=== PATIENT | female | born 1990 | race Caucasian/White ===

== ENCOUNTER 2020-09-25 13:05 | Outpatient (REF) | payer OTHER, SELFPAY | END 2020-09-25 13:06 | disposition home or self-care (01) | LOC: HO.LAB 13:05 | PROVIDERS: Visit Provider Internal Medicine | DX: Z20.822 Contact with and (suspected) exposure to COVID-19 (principal) | CPT/HCPCS: 36415; C9803; U0003; U0005 ==

== ENCOUNTER 2021-03-31 08:11 | Outpatient (REF) | payer OTHER, SELFPAY | END 2021-03-31 08:12 | disposition home or self-care (01) | LOC: HO.HMGCLDS 08:11 | PROVIDERS: PCP Internal Medicine; Visit Provider Internal Medicine | DX: Z20.822 Contact with and (suspected) exposure to COVID-19 (principal) | CPT/HCPCS: C9803; U0003; U0005 ==

== ENCOUNTER 2021-12-29 00:07 | Emergency (ER) | payer OTHER, SELFPAY ==
--- NOTE | ~2021-12-29 | XR_ITS ---
EXAMINATION: XR HAND, RIGHT CLINICAL INFORMATION: Trauma. COMPARISON: None TECHNIQUE: PA, lateral, and oblique views of the right hand. FINDINGS: Images are obtained with a marker position towards the second distal phalanx. No fractures, malalignment, dystrophic calcifications, embedded radiopaque foreign bodies or soft tissue emphysematous changes are noted. Normal bone mineralization is identified. XR/XR hand RT 2V IMPRESSION: Normal radiographs of the right hand.
[2021-12-29 00:20] VITALS: BP 118/64; PULSE 82; RESP 18; TEMP 36.4; O2SAT 98; BMI 30.7
[2021-12-29 02:00] VITALS: BP 94/56; PULSE 72; RESP 16; TEMP 36.7; O2SAT 99
[2021-12-29 04:00] VITALS: BP 118/68; PULSE 76; RESP 16; TEMP 36.7; O2SAT 99
[2021-12-29] MEDS: Acetaminophen 325 MG TABLET 650 MG PO (04:15)
--- NOTE | 2021-12-29 06:41 | ED.EXTPRO ---
HPI - Extremity Problem General Chief complaint: Extremity Problem Stated complaint: punctured R pointer finger with hook, tingling arm Time Seen by Provider: 12/29/21 06:41 Source: patient Mode of arrival: ambulatory Limitations: no limitations History of Present Illness Complaint: other (puncture wound index finger right hand) Onset (ago): day(s) (last night) Pain Consistency: constant Location: right and other (index finger with her new crotchet needle) Quality: aching Radiation: proximal Relieving factors: nothing Exacerbating factors: palpation Associated symptoms: denies other symptoms Context: other (crotchet needle) Related Data Previous Rx's Medication Instructions Recorded nebulizers #1 ea 09/25/20 albuterol sulfate 2.5 mg (3 mL) inhalation QID PRN 10/01/20 shortness of breath or wheezing #180 mL cephalexin 500 mg capsule 500 mg PO TID 5 days #15 caps 12/29/21 Allergies Allergy/AdvReac Type Severity Reaction Status Date / Time morphine [MORPHINE] Allergy Severe SOB/TREMORS, Unverified 03/26/20 17:18 shortness of breath, shortness of breath levetiracetam [Keppra] Allergy Unknown Verified 11/21/19 00:00 Review of Systems Review of Systems: Constitutional : No Fever, No Chills, Cardiovascular : No Chest Pain, No SOB Respiratory : No Dyspnea Gastrointestinal : No abdominal pain Musculoskeletal : No Joint Swelling Skin : No rash, positive skin puncture Neuro : No Weakness, No Numbness PMFSH Past Medical History Attestation statement: The following information was validated with the patient. Medical History Chiari I malformation HSV-2 infection Surgical History History of section History of hernia repair Social History Social History (Updated 12/29/21 @ 07:22 by Odessa Peterson DO) Patient Tobacco Use Status: Never used Tobacco Advance Directives: No Physical Exam Vital Signs: Vital Signs: Last Vital Signs Temp 98.0 F 12/29/21 04:00 Pulse 76 12/29/21 04:00 Resp 16 12/29/21 04:00 BP 118/68 12/29/21 04:00 Pulse Ox 99 12/29/21 04:00 O2 Del Method 12/29/21 04:00 BMI result Body Mass Index 30.7 Appearance: Alert. Oriented X3. No acute distress. Eyes: Pupils equal, round and reactive to light. ENT: Pharynx normal. Neck: Normal inspection. Neck supple. CVS: Pulses normal. Respiratory: No respiratory distress. Abdomen: Soft and nontender. Skin: Skin warm and dry. Normal skin color. Extremities: No lower extremity edema. R index finger puncture wound very punctate on pad closed not bleeding some whitish discoloration to the nail but no hematoma seen SILT throughout, BCR in digit, full ROM and strength in flexion/extension Neuro: Oriented X 3. No motor deficit. No sensory deficit. MDM - Extremity (Nontraumatic) MDM Narrative Medical decision making narrative: 31 yo female with puncture wound to R index finger (L hand dom) SILT intact, xray negative, full ROM, will update tetanus and start on 5 days cephalexin given puncture wound in nailbed - stable for DC patient is NV intact and has full ROM of finger Discharge Plan Discharge Clinical Impression: Puncture wound Patient Disposition: Home, Self-Care Instructions: Puncture Wound (ED), Bone Bruise (ED) Additional Instructions: return to ED for any worsening symptoms or concerns FINDINGS: Images are obtained with a marker position towards the second distal phalanx. No fractures, malalignment, dystrophic calcifications, embedded radiopaque foreign bodies or soft tissue emphysematous changes are noted. Normal bone mineralization is identified.? XR/XR hand RT 2V IMPRESSION: Normal radiographs of the right hand. Prescriptions: New cephalexin 500 mg capsule 500 mg PO TID 5 Days Qty: 15 0RF No Action (DME) nebulizers Misc See Rx Instructions .ROUTE .MEDSUPPLY Qty: 1 0RF Rx Instructions: As directed updraft treatment Q 4-6 hours p.r.n. albuterol sulfate 2.5 mg /3 mL (0.083 %) solution for nebulization 2.5 mg inhalation QID PRN (Reason: shortness of breath or wheezing) Qty: 180 0RF Interventions: ED Discharge Assessment Last Done: 12/29/21 07:13 Discharge Date/Time: 12/29/21 07:13
[2021-12-29] MEDS: cephALEXin 500 MG CAPSULE PO (07:00)
[2021-12-29] MEDS: Diphth,Pertus(ACell),Tet Adult 0.5 ML SYRINGE IM (07:00)
== END 2021-12-29 07:13 | disposition home or self-care (01) ==
PROVIDERS: Emergency Provider Emergency Medicine; PCP Internal Medicine
DX: S61.230A Puncture wound without foreign body of right index finger without damage to nail, initial encounter (principal); W26.9XXA Contact with unspecified sharp object(s), initial encounter; Y93.9 Activity, unspecified; Y92.9 Unspecified place or not applicable; Y99.9 Unspecified external cause status; Z79.899 Other long term (current) drug therapy
CPT/HCPCS: 73120; 90471; 90715; 99284

== ENCOUNTER → 2022-05-09 13:15 | Outpatient (BNVA) | payer OTHER, SELFPAY | PROVIDERS: PCP Internal Medicine; Visit Provider Surgery | DX: K64.8 Other hemorrhoids (principal); Z80.3 Family history of malignant neoplasm of breast | CPT/HCPCS: 46600; 99202 ==

== ENCOUNTER → 2022-05-11 12:51 | Outpatient (BNVA) | payer OTHER, SELFPAY | PROVIDERS: PCP Internal Medicine; Visit Provider Surgery | DX: Z31.438 Encounter for other genetic testing of female for procreative management (principal) | CPT/HCPCS: 99211 ==

== ENCOUNTER → 2022-06-23 13:22 | Outpatient (BNVA) | payer OTHER, SELFPAY | PROVIDERS: PCP Internal Medicine; Visit Provider Surgery | DX: Z71.2 Person consulting for explanation of examination or test findings (principal); Z80.3 Family history of malignant neoplasm of breast | CPT/HCPCS: 99212 ==

== ENCOUNTER 2024-12-13 08:18 | Outpatient (REF) | payer OTHER, SELFPAY ==
--- NOTE | ~2024-12-13 | XR_ITS ---
EXAMINATION: XR SHOULDER 2 OR MORE VIEWS LEFT HISTORY: M25.512 - Pain in left shoulder COMPARISON: There are no prior studies available for comparison. FINDINGS: Four views of the are submitted. Osseous mineralization is normal. There is no fracture or dislocation. The glenohumeral and acromioclavicular joint spaces are preserved. The soft tissues are unremarkable. XR/XR shoulder LT min 2V IMPRESSION: Unremarkable examination of the left shoulder. Electronically signed by: Narinder Moreno MD 12/13/2024 09:30 AM EDT
== END 2024-12-13 08:19 | disposition home or self-care (01) ==
LOC: HO.XRAY 08:18
PROVIDERS: PCP Internal Medicine; Visit Provider Nurse Practitioner Family
DX: M25.512 Pain in left shoulder (principal)
CPT/HCPCS: 73030; 96127; 99212

== ENCOUNTER 2024-12-13 08:18 | Outpatient (AMB) | payer OTHER, SELFPAY ==
--- NOTE | 2024-12-13 08:24 | MHC.PC.OV ---
Vital Signs 12/13/24 08:31 Height 5 ft 6 in Weight 187 lb BMI 30.2 BP 110/80 Blood Pressure Location Rt brachial Position Sitting Respiration 18 Pulse 74 Pulse Source Pulse Oximeter Temp 97.1 F Temp Source Temporal Artery Scan Pulse Oximetry (%) 99 Oxygen Delivery Method Room Air Intake Visit Reasons: Follow up Intake Note: Patient is here to follow-up after an urgent care visit at [facility] on 12/10/2024. Drawing Press Operator Required: No Accompanied by: Self / Same As Patient Allergies morphine [MORPHINE] Allergy (Severe, Verified 12/13/24 08:33) SOB/TREMORS, shortness of breath, shortness of breath levetiracetam [Keppra] Allergy (Unknown, Verified 12/13/24 08:33) twitching Tobacco use date assessed: 12/13/24 Dental Screening Dental Screen Date: 12/13/24 Did you have a dental visit in the last 12 months?: Yes Did you have a dental problem in the last 6 months where you did not have access to dental care?: No Was dental information given to patient?: Patient has dentist HPI HPI Comments History of Present Illness Details 34 y/o Female patient with Pmhx significant for generalized anxiety disorder, asthma, and GERD presents to the clinic today for EDF. She was admitted at [facility] on 12/10 for evaluation and treatment of Left Shoulder pain. Her Job involves heavy lifting with Boxes - believes she injured shoulder at work. Reports that ED Providers informed her that she has Rotator Cuff Injury and will need Ortho referral. Pt never had any imaging done on the ED. NO Available Hospital Notes for review Prior to visit. [facility] Medical History (Updated 12/13/24 @ 08:47 by Jessy Carrasquillo NP) Left shoulder pain Family history of breast cancer Hemorrhoids with complication Bleeding external hemorrhoids HSV-2 infection Chiari I malformation Anxiety and depression Obesity (BMI 30-39.9) Seizure disorder Tobacco abuse Asthma Surgical History History of hernia repair History of section Family History Maternal Grandmother Breast cancer Sister Substance abuse Mother Bipolar 1 disorder Social History (Updated 12/13/24 @ 08:36 by Ute Dominguez CMA) Housing: Apartment Alcohol intake: current Patient Tobacco Use Status: Former Tobacco user Tobacco use type: Cigarette Cigarettes Per Day: 6 Years Smoked: 10+; Quit 2023 e-Cigarette/Vaping Use: Never Used Substance Use Type: Marijuana service: No Current occupational status: employed Cognitive needs: No Hearing needs: No Vision needs: No Female Reproductive History Menstrual Date of last menstrual period: 12/06/24 Questionnaire PHQ-9 Over the last 2 weeks, how often have you been bothered by any of the following problems? 1. Little interest or pleasure in doing things: not at all 2. Feeling down, depressed, or hopeless: not at all 3. Trouble falling or staying asleep, or sleeping too much: not at all 4. Feeling tired or having little energy: not at all 5. Poor appetite or overeating: not at all 6. Feeling bad about yourself - or that you are a failure or have let yourself or your family down: not at all 7. Trouble concentrating on things, such as reading the newspaper or watching television: not at all 8. Moving or speaking so slowly that other people could have noticed. Or the opposite - being so fidgety or restless that you have been moving around a lot more than usual: not at all 9. Thoughts that you would be better off or of hurting yourself in some way: not at all Total score: 0 Depression Screening Interpretation: Negative Depression Screening Done: Yes 83563 - PHQ-9 Billing: Yes Source: Developed by Drs. Narinder Will, Latoya Garnica, Nicolas Mccann and colleagues, with an educational kg from [employer]. Thrive Questionnaire Date Thrive assessed: 12/13/24 I am a: Patient What is your living situation today?: I have a steady place to live Within the past 12 months, did the food you bought not last and you didn't have the money to get more?: Never true Within the past 12 months, did you worry whether your food would run out before you got money to buy more?: Never true Do you have trouble paying for medicines?: No Do you have trouble getting transportation to medical appointments?: No Do you have trouble paying your heating and electricity bill?: No Do you have trouble taking care of your child, family member or friend?: No Do you have trouble with day-to-day activities such as bathing, preparing meals, shopping, managing finances, etc.?: No Are you currently unemployed and looking for a job?: No Are you interested in more education?: No Please select the resources that you would like help with: None Currently or been in a relationship where the following occur: No concerns reported THRIVE Score: 0 AUDIT C Alcohol Use Questionnaire (AUDIT-C) 1. How often do you have a drink containing alcohol?: Monthly or less 2. How many drinks containing alcohol do you have on a typical day when you are drinking?: 1 or 2 3. How often do you have six or more drinks on one occasion?: Never Total Score: 1 Score Reviewed/Action Taken: No TAMARA-7 AMB Questionnaire TAMARA-7 Date TAMARA - 7 assessed: 12/13/24 Feeling nervous, anxious, or on edge: 0 = Not at all Not being able to stop or control worryin = Not at all Worrying too much about different things: 0 = Not at all Trouble relaxin = Not at all Being so restless that it is hard to sit still: 0 = Not at all Becoming easily annoyed or irritable: 0 = Not at all Feeling afraid as if something awful might happen: 0 = Not at all Total TAMARA-7 score (0-4 normal; 5-9 mild; 10-14 moderate; 15-21 severe): 0 Source: Developed by Drs. Narinder Will, Latoya Garnica, Nicolas Mccann and colleagues, with an educational kg from [employer]. TAMARA-7 Assessment Billing TAMARA-7 Assessment Tool: TAMARA-7 Assessment 82824 Review of Systems Const All systems reviewed & are unremarkable except as noted in HPI and below Physical exam (Primary Care) Vital Signs: Last Vital Signs Temp 97.1 F 12/13/24 08:31 Pulse 74 12/13/24 08:31 Resp 18 12/13/24 08:31 BP 110/80 12/13/24 08:31 Pulse Ox 99 12/13/24 08:31 Oxygen Delivery Method Room Air 12/13/24 08:31 BMI result Body Mass Index 30.2 Tobacco/Smoking Status: Tobacco use Status Tobacco use date assessed 12/13/24 12/13/24 08:39 Patient Tobacco Use Status Former Tobacco user 12/13/24 08:39 Tobacco use type Cigarette 12/13/24 08:36 e-Cigarette/Vaping Use Never Used 12/13/24 08:36 PHQ-9: PHQ-9 Score PHQ-9: Total score 0 12/13/24 08:39 Depression Screening Interpretation: Negative Thrive Assessment: Date of Thrive Assessment Date Thrive assessed 12/13/24 12/13/24 08:39 Currently or been in a relationship where the following occur: No concerns reported Const General: no acute distress Nutritional Appearance: overweight Orientation/consciousness: patient oriented x3 Neuro General: patient oriented x3, gait normal and moves all extremities Extrem Left upper extremity: normal to inspection and shoulder/upper arm Details: tenderness Location: of the A-C joint and abnormal ROM Details: held in an abnormal fashion, pain with active ROM and pain with passive ROM; no swelling, no crepitus and no deformity Coding Level of Care Code Est Pt Level 4 (36936) Diagnoses Acute pain of left shoulder M25.512 Chronicity: acute Additional Codes TAMARA-7 Assessment Billing - TAMARA-7 Assessment Tool: TAMARA-7 Assessment 53089 ([id number]) PHQ-9 - 52555 - PHQ-9 Billing: Yes ([id number]) Time Spent (min) 20 Assessment & Plan Assessment & Plan (1) Left shoulder pain: Code(s): M25.512 - Pain in left shoulder Category: Medical Qualifiers: Chronicity: acute Qualified Code(s): M25.512 - Pain in left shoulder Plan: Ordered Xray Shoulder Ordered NSAIDS and Muscle relaxants. Placed referral to PT and Orthopedics. Orders: Orders XR shoulder LT min 2V Today M25.512 - Pain in left shoulder Medications: New ibuprofen-acetaminophen 125-250 mg (Motrin Dual Action with Tylenol) 2 tabs PO Q8H PRN 30 tabs 0RF pain (scale score 7-10) M25.512 - Pain in left shoulder metaxalone 800 mg PO TID 20 tabs 0RF M25.512 - Pain in left shoulder Discontinued albuterol sulfate Discontinued Reason: Patient Completed Course 2.5 mg (3 mL) inhalation QID PRN 180 mL 0RF shortness of breath or wheezing J45.909 - Unspecified asthma, uncomplicated fluticasone propionate 110 mcg/actuation (Flovent HFA) Discontinued Reason: Patient no longer taking 2 puffs inhalation BID 12 grams 3RF albuterol sulfate 90 mcg/actuation (Ventolin HFA) Discontinued Reason: Patient no longer taking 2 puffs inhalation QID 8.5 grams 0RF
[2024-12-13 08:31] VITALS: BP 110/80; PULSE 74; RESP 18; TEMP 36.2; O2SAT 99; BMI 30.2
== END 2024-12-13 09:19 | disposition home or self-care (01) ==
LOC: HO.HMCH 08:19
PROVIDERS: PCP Internal Medicine; Visit Provider Nurse Practitioner Family
DX: M25.512 Pain in left shoulder (principal)

== ENCOUNTER → 2024-12-13 09:04 | Outpatient (BNV) | payer OTHER, SELFPAY | PROVIDERS: PCP Internal Medicine; Visit Provider Radiology Diagnostic Radiology | DX: M25.512 Pain in left shoulder (principal) | CPT/HCPCS: 73030 ==

== ENCOUNTER → 2024-12-16 12:41 | Outpatient (BNVA) | payer OTHER, SELFPAY | PROVIDERS: PCP Internal Medicine; Visit Provider Physician Assistant Medical | DX: M24.812 Other specific joint derangements of left shoulder, not elsewhere classified (principal); M25.812 Other specified joint disorders, left shoulder; S46.812A Strain of other muscles, fascia and tendons at shoulder and upper arm level, left arm, initial encounter; X50.3XXA Overexertion from repetitive movements, initial encounter | CPT/HCPCS: 99203 ==

== ENCOUNTER → 2024-12-23 10:18 | Outpatient (BNVA) | payer OTHER, SELFPAY | PROVIDERS: PCP Internal Medicine; Visit Provider Physician Assistant Medical | DX: M24.812 Other specific joint derangements of left shoulder, not elsewhere classified (principal); M25.812 Other specified joint disorders, left shoulder; S46.812A Strain of other muscles, fascia and tendons at shoulder and upper arm level, left arm, initial encounter; X50.3XXA Overexertion from repetitive movements, initial encounter | CPT/HCPCS: 99213 ==

== ENCOUNTER → 2024-12-30 09:43 | Outpatient (BNVA) | payer OTHER, SELFPAY | PROVIDERS: PCP Internal Medicine; Visit Provider Physician Assistant Medical | DX: M24.812 Other specific joint derangements of left shoulder, not elsewhere classified (principal); M25.812 Other specified joint disorders, left shoulder; S46.812A Strain of other muscles, fascia and tendons at shoulder and upper arm level, left arm, initial encounter; X50.3XXA Overexertion from repetitive movements, initial encounter | CPT/HCPCS: 99213 ==

== ENCOUNTER → 2025-01-07 15:40 | Outpatient (BNVA) | payer OTHER, SELFPAY | PROVIDERS: PCP Internal Medicine; Visit Provider Physician Assistant Medical | DX: M24.812 Other specific joint derangements of left shoulder, not elsewhere classified (principal); M25.812 Other specified joint disorders, left shoulder; S46.812D Strain of other muscles, fascia and tendons at shoulder and upper arm level, left arm, subsequent encounter; X50.3XXD Overexertion from repetitive movements, subsequent encounter | CPT/HCPCS: 99213 ==

== ENCOUNTER → 2025-01-20 11:10 | Outpatient (BNVA) | payer OTHER, SELFPAY | PROVIDERS: PCP Internal Medicine; Visit Provider Physician Assistant Medical | DX: M24.812 Other specific joint derangements of left shoulder, not elsewhere classified (principal); M25.812 Other specified joint disorders, left shoulder; S46.812D Strain of other muscles, fascia and tendons at shoulder and upper arm level, left arm, subsequent encounter; X50.3XXD Overexertion from repetitive movements, subsequent encounter | CPT/HCPCS: 99213 ==

== ENCOUNTER → 2025-02-03 10:10 | Outpatient (BNVA) | payer OTHER, SELFPAY | PROVIDERS: PCP Internal Medicine; Visit Provider Physician Assistant Medical | DX: M24.812 Other specific joint derangements of left shoulder, not elsewhere classified (principal); M25.812 Other specified joint disorders, left shoulder; S46.812D Strain of other muscles, fascia and tendons at shoulder and upper arm level, left arm, subsequent encounter; X50.3XXD Overexertion from repetitive movements, subsequent encounter | CPT/HCPCS: 99213 ==

== ENCOUNTER → 2025-02-17 09:47 | Outpatient (BNVA) | payer OTHER, SELFPAY | PROVIDERS: Visit Provider Physician Assistant Medical | DX: M24.812 Other specific joint derangements of left shoulder, not elsewhere classified (principal); M25.812 Other specified joint disorders, left shoulder; S46.812D Strain of other muscles, fascia and tendons at shoulder and upper arm level, left arm, subsequent encounter; X50.3XXD Overexertion from repetitive movements, subsequent encounter | CPT/HCPCS: 99213 ==

== ENCOUNTER 2025-02-23 11:07 | Outpatient (REF) | payer OTHER, SELFPAY ==
--- NOTE | ~2025-02-23 | MR_ITS ---
CLINICAL HISTORY: DERANGEMENT MR left shoulder without gadolinium Comparison: None provided Findings: Subtle flattening of the superolateral aspect of the humeral head may be due to a nonacute Hill-Sachs injury. Correlate clinically. Normal alignment without acute fracture. No significant degenerative changes. No evidence of subacromial/subdeltoid impingement on imaging. No effusion. Mild supraspinatus tendinosis. The rotator cuff tendons are intact. No tears of the long head of biceps tendon. Glenoid labrum is intact. IMPRESSION: Mild supraspinatus tendinosis. Subtle flattening of the superolateral aspect of the humeral head may be due to a nonacute Hill-Sachs injury. Correlate clinically. This document has been electronically signed by: Rena Kent MD on 02/24/2025 13:34:31
== END 2025-02-23 11:08 | disposition home or self-care (01) ==
LOC: HO.MRI 11:07
PROVIDERS: PCP Internal Medicine; Visit Provider Internal Medicine
DX: M25.512 Pain in left shoulder (principal)
CPT/HCPCS: 73221

== ENCOUNTER → 2025-02-23 11:22 | Outpatient (BNV) | payer OTHER, SELFPAY | PROVIDERS: PCP Internal Medicine; Visit Provider Radiology Diagnostic Radiology | DX: M24.812 Other specific joint derangements of left shoulder, not elsewhere classified (principal) | CPT/HCPCS: 73221 ==

== ENCOUNTER 2025-03-03 11:04 | Outpatient (AMB) | payer OTHER, SELFPAY ==
--- NOTE | 2025-03-03 11:10 | A.OFFVIS_ITS ---
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 HPI HPI WC LEFT TRAPEZIUS AND LEFT SHOULDER: Details: History of Present Illness The patient is a 34-year-old female presenting with left trapezius spasm and left shoulder derangement. The issues began following a repetitive lifting injury at work, which caused a strain in the left trapezius and shoulder. She completed some rounds of physical therapy but continues to experience persistent pain and tightness in the left trapezius. The patient underwent an MRI of the shoulder, which revealed mild supraspinatus tendinosis and subtle flattening of the superolateral aspect of the humeral head, suggestive of a Hill-Sachs lesion. 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 The patient describes her pain as 5 to 6 out of 10, escalating to 8 to 9 in the evenings, and exacerbated by movement. She has been unable to work since December and reports difficulty sleeping due to the pain. She has completed 14 sessions of physical therapy from December 09 to February, with some improvement in range of motion but persistent weakness. Pain Description - Pain onset following repetitive lifting injury at work - Pain severity ranges from 5 to 6 out of 10, increasing to 8 to 9 in the evenings - Pain exacerbated by movement - Pain interferes with sleep and work, leading to work absence since December Physical Exam - Musculoskeletal: Limited internal rotation of the left shoulder - Musculoskeletal: Tenderness on palpation of the supraspinatus region Results - MRI of the shoulder: Mild supraspinatus tendinosis, subtle flattening of the superolateral aspect of the humeral head suggestive of Hill-Sachs lesion Pain Management - Affect: Pain impacts sleep and work, causing significant distress - Analgesia: Current pain level is 5 to 6 out of 10, increasing to 8 to 9 in the evenings - Activities of Daily Living: Pain interferes with sleep and work, leading to work absence since December [facility] Medical History (Updated 03/04/25 @ 14:14 by Fadi Morris MD) Left shoulder pain Family history of breast cancer Hemorrhoids with complication Bleeding external hemorrhoids HSV-2 infection Chiari I malformation Anxiety and depression Obesity (BMI 30-39.9) Seizure disorder Tobacco abuse Asthma Surgical History History of hernia repair History of section Family History Maternal Grandmother Breast cancer Sister Substance abuse Mother Bipolar 1 disorder Social History (Updated 12/13/24 @ 08:36 by Ute Dominguez CMA) Housing: Apartment Alcohol intake: current Patient Tobacco Use Status: Former Tobacco user Tobacco use type: Cigarette Cigarettes Per Day: 6 Years Smoked: 10+; Quit 2023 e-Cigarette/Vaping Use: Never Used Substance Use Type: Marijuana service: No Current occupational status: employed Cognitive needs: No Hearing needs: No Vision needs: No Physical Exam Vital Signs: Last Vital Signs Pulse 77 03/03/25 11:12 Resp 16 03/03/25 11:12 BP 109/67 03/03/25 11:12 Pulse Ox 99 03/03/25 11:12 Oxygen Delivery Method Room Air 03/03/25 11:12 BMI result Body Mass Index 29.4 Assessment & Plan Assessment & Plan (1) Supraspinatus tendinitis: Code(s): M75.90 - Shoulder lesion, unspecified, unspecified shoulder Category: Medical (2) Hill Sachs deformity, left: Code(s): S42.292A - Other displaced fracture of upper end of left humerus, initial encounter for closed fracture Category: Medical Plan Plan - Continue physical therapy focusing on gentle stretching and strengthening exercises - Apply topical anti-inflammatory medications to manage pain - Plan for a low-dose steroid injection to the left supraspinatus tendon - Consider platelet-rich plasma PRP) injections if pain persists, pending insurance approval - Educate patient on ergonomic adjustments and minimizing overhead activities to prevent exacerbation Patient was informed and verbally consented to the use of an ambient scribe for clinic note documentation during this visit. Discussion Notes I discussed with the patient the findings of the MRI, which showed mild supraspinatus tendinosis and a possible Hill-Sachs lesion. We talked about continuing physical therapy and using topical anti-inflammatory medications as initial management steps. I explained the option of a low-dose steroid injection to the left supraspinatus tendon and the potential for platelet-rich plasma (PRP) injections if pain persists. We also discussed the importance of ergonomic adjustments and minimizing overhead activities to prevent further injury. The patient was informed about the potential benefits and limitations of each treatment option, including the insurance coverage challenges for PRP injections. Patient Instructions - Continue physical therapy with focus on gentle stretching and strengthening exercises - Use topical anti-inflammatory medications as directed - Follow up for scheduled low-dose steroid injection - Consider PRP injections if recommended and approved by insurance - Make ergonomic adjustments and avoid overhead activities to prevent further injury Coding Level of Care Code New Pt Level 4 (16474) Diagnoses Supraspinatus tendinitis M75.90 Hill Sachs deformity, left S42.292A
[2025-03-03 11:12] VITALS: BP 109/67; PULSE 77; RESP 16; O2SAT 99; BMI 29.4
== END 2025-03-03 12:31 | disposition home or self-care (01) ==
LOC: HO.PMC 11:05
PROVIDERS: PCP Internal Medicine; Visit Provider Internal Medicine
DX: M75.90 Shoulder lesion, unspecified, unspecified shoulder (principal); S42.292A Other displaced fracture of upper end of left humerus, initial encounter for closed fracture
CPT/HCPCS: 99204

== ENCOUNTER → 2025-03-03 11:04 | Outpatient (BNVA) | payer OTHER, SELFPAY | PROVIDERS: PCP Internal Medicine; Visit Provider Internal Medicine | DX: M75.92 Shoulder lesion, unspecified, left shoulder (principal); S42.292A Other displaced fracture of upper end of left humerus, initial encounter for closed fracture | CPT/HCPCS: 99202 ==

== ENCOUNTER → 2025-03-13 09:50 | Outpatient (BNVA) | payer OTHER, SELFPAY | PROVIDERS: PCP Internal Medicine; Visit Provider Physician Assistant Medical | DX: M24.812 Other specific joint derangements of left shoulder, not elsewhere classified (principal); S46.812D Strain of other muscles, fascia and tendons at shoulder and upper arm level, left arm, subsequent encounter; X50.3XXD Overexertion from repetitive movements, subsequent encounter | CPT/HCPCS: 99213 ==

== ENCOUNTER 2025-03-21 11:38 | Outpatient (AMB) | payer OTHER, SELFPAY ==
[2025-03-21 11:42] VITALS: BP 102/68; PULSE 82; RESP 16; O2SAT 99; BMI 29.4
--- NOTE | 2025-03-21 11:42 | A.OFFVIS_ITS ---
Vital Signs 03/21/25 11:42 Height 5 ft 6 in Weight 182 lb BMI 29.4 BP 102/68 Blood Pressure Location Lt brachial Position Sitting Respiration 16 Pulse 82 Pulse Source Pulse Oximeter Pulse Oximetry (%) 99 Oxygen Delivery Method Room Air Intake Visit Reasons: Left supraspinatus injection Full Time Required: No Cleaning Custodian: Cleaning Custodian Present Accompanied by: Hunter Proctor Allergies morphine (MORPHINE) Allergy (Severe, Verified 03/21/25 11:46) SOB/TREMORS, shortness of breath, shortness of breath levetiracetam (Keppra) Allergy (Unknown, Verified 03/21/25 11:46) twitching Medication List - Last Reconciled 03/21/25 by Angelika Adhikari LPN cyclobenzaprine 10 mg PO BEDTIME PRN nebulizers As directed updraft treatment Q 4-6 hours p.r.n. HPI HPI Left supraspinatus injection: Details: History of Present Illness The patient is a 34-year-old female presenting for a steroid injection to the left supraspinatus tendon under ultrasound guidance. The procedure involved identifying the supraspinatus tendon in both long and short axis views using ultrasound. A 25-gauge needle was advanced to the top of the tendon, and 5 mg of Kenalog mixed with 0.25% ropivacaine 3 mL was injected. Injection image was saved. The patient tolerated the procedure well but reported some lightheadedness afterward. This resolved with the patient lying supine and applying a cold pack to the head. She was discharged in stable condition and will follow up in two weeks to assess the response to the intervention. Physical Exam - Musculoskeletal: Ultrasound-guided examination of the left supraspinatus tendon was performed. [facility] Medical History (Updated 03/04/25 @ 14:14 by Fadi Morris MD) Left shoulder pain Family history of breast cancer Hemorrhoids with complication Bleeding external hemorrhoids HSV-2 infection Chiari I malformation Anxiety and depression Obesity (BMI 30-39.9) Seizure disorder Tobacco abuse Asthma Surgical History History of hernia repair History of section Family History Maternal Grandmother Breast cancer Sister Substance abuse Mother Bipolar 1 disorder Social History (Updated 12/13/24 @ 08:36 by Ute Dominguez CMA) Housing: Apartment Alcohol intake: current Patient Tobacco Use Status: Former Tobacco user Tobacco use type: Cigarette Cigarettes Per Day: 6 Years Smoked: 10+; Quit 2023 e-Cigarette/Vaping Use: Never Used Substance Use Type: Marijuana service: No Current occupational status: employed Cognitive needs: No Hearing needs: No Vision needs: No Physical Exam Vital Signs: Last Vital Signs Pulse 82 03/21/25 11:42 Resp 16 03/21/25 11:42 BP 102/68 03/21/25 11:42 Pulse Ox 99 03/21/25 11:42 Oxygen Delivery Method Room Air 03/21/25 11:42 BMI result Body Mass Index 29.4 Assessment & Plan Assessment & Plan (1) Supraspinatus tendinitis: Code(s): M75.90 - Shoulder lesion, unspecified, unspecified shoulder Category: Medical Plan Plan Patient was informed and verbally consented to the use of an ambient scribe for clinic note documentation during this visit. Discussion Notes I discussed the procedure of injecting a steroid into the left supraspinatus tendon under ultrasound guidance with the patient. The patient was informed about the potential risks and benefits, and informed consent was obtained prior to the procedure. Post-procedure, the patient experienced lightheadedness, which resolved with appropriate measures, and she was discharged in stable condition. Patient Instructions - Follow up in two weeks to assess the response to the steroid injection. - Monitor for any adverse reactions and seek medical attention if necessary. v Coding Level of Care Code Procedure Only Diagnoses Supraspinatus tendinitis M75.90
== END 2025-03-21 12:19 | disposition home or self-care (01) ==
LOC: HO.PMC 11:39
PROVIDERS: PCP Internal Medicine; Visit Provider Internal Medicine
DX: M75.92 Shoulder lesion, unspecified, left shoulder (principal)
CPT/HCPCS: 20551

== ENCOUNTER → 2025-03-21 11:38 | Outpatient (BNVA) | payer OTHER, SELFPAY | PROVIDERS: PCP Internal Medicine; Visit Provider Internal Medicine | DX: M75.92 Shoulder lesion, unspecified, left shoulder (principal) | CPT/HCPCS: 20551; J2795; J3301 ==

== ENCOUNTER → 2025-03-24 11:06 | Outpatient (BNVA) | payer OTHER, SELFPAY | PROVIDERS: PCP Internal Medicine; Visit Provider Physician Assistant Medical | DX: M24.812 Other specific joint derangements of left shoulder, not elsewhere classified (principal); M25.812 Other specified joint disorders, left shoulder; S46.812D Strain of other muscles, fascia and tendons at shoulder and upper arm level, left arm, subsequent encounter; X50.3XXD Overexertion from repetitive movements, subsequent encounter | CPT/HCPCS: 99213 ==

== ENCOUNTER 2025-04-04 11:49 | Outpatient (AMB) | payer OTHER, SELFPAY ==
--- OUTSIDE RECORDS SUMMARY | 2022-07-19 16:10 | XMS_ITS | Encounter Summary ---
Author Organization [facility] Address [address] [place] [address] Phone Care Team Providers Care Protective Services Officer Name Role Phone Eli Calvin MD Unavailable James Morgan MD Unavailable [phone] Mars Badillo MD Primary Care Provider [phone] Encounter Details Date Type Department Care Team (Late st Contact Info) Description 07/19/2022 3:10 PM [facility] Encounter [facility] [address] [place] [address] Freya Graham, [facility] [address] [facility], [facility] [address] [place] [address] [email or web address] Social History Tobacco Use Types Packs/Day Years [...] No displaced fracture or dislocation. Freya Graham BAG MACHINE OPERATOR IMG XR LOWER EXTREMITY Final Result documented in this encounter Visit Diagnoses Not on filedocumented in this encounter Care Teams Protective Services Officer Relationship Specialty Start Date End Date Justino, Mars Andrade MD [address] [place] [address] [place] [phone] PCP - General 04/25/17 Eli Calvin MD [address] [place] [address] Historical LMR Provider 04/24/17 James Morgan MD [address] [place] [address] Historical LMR Provider 04/24/17 documented as of this encounter Additional Source Comments The information contained in this document represents components of the legal health record. It is not the complete legal health record.[facility]
--- OUTSIDE RECORDS SUMMARY | 2022-07-19 16:11 | XMS_ITS | Encounter Summary ---
Author Organization [facility] Address [address] [place] [address] Phone Care Team Providers Care Blasting Cap Assembler Name Role Phone Eli Calvin MD Unavailable James Morgan MD Unavailable [phone] Mars Badillo MD Primary Care Provider [phone] Encounter Details Date Type Department Care Team (Late st Contact Info) Description 07/19/2022 3:11 PM [facility] Hospital Encounter [facility] [address] [place] [address] Freya Graham, [facility] [address] [facility], [facility] [address] [place] [address] [email or web address] Social History Tobacco Use Types Packs/Day Years [...] Name Priority Date/Time Associated Diagnosis Comments XR FOOT 3 OR MORE VIEWS (RIGHT) Urgent/patient waiting 07/19/2022 3:21 PM EST Closed avulsion fracture of lateral malleolus of right fibula, initial encounter documented in this encounter Results * XR FOOT 3 OR MORE VIEWS (RIGHT) (07/19/2022 3:21 PM EST) Anatomical Region Laterality Modality Foot Right Computed Radiogr aphy 07/19/2022 3:24 PM [...] No displaced fracture or dislocation. Freya Graham SOLUTION PROFESSIONAL IMG XR LOWER EXTREMITY Final Result documented in this encounter Visit Diagnoses Not on filedocumented in this encounter Care Teams Blasting Cap Assembler Relationship Specialty Start Date End Date Justino, Mars Andrade MD [address] [place] [address] [place] [phone] PCP - General 04/25/17 Eli Calvin MD [address] [place] [address] Historical LMR Provider 04/24/17 James Morgan MD [address] [place] [address] Historical LMR Provider 04/24/17 documented as of this encounter Additional Source Comments The information contained in this document represents components of the legal health record. It is not the complete legal health record.[facility]
--- NOTE | 2025-04-04 11:53 | MHC.OFFVIS ---
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 HPI HPI 2 WEEK FOLLOW UP: Details: History of Present Illness The patient is a 34-year-old female presenting with shoulder pain and adverse reaction to a corticosteroid injection. The patient reported experiencing muscle tightness in her upper back following a corticosteroid injection, which she described as feeling like her back was getting back gone with pinches all over. This reaction was severe enough to prevent her from moving for five days. The patient had never received a cortisone injection before this incident. She noted that the shoulder pain slightly improved initially, allowing her to sleep on it for two nights, but the pain returned after a short period. The patient has undergone physical therapy, which identified a trigger point in the shoulder area, but this did not provide lasting relief. The patient has not experienced any prior allergic reactions to medications. Pain Description - Onset: Following corticosteroid injection - Quality: Muscle tightness and pinching sensation - Location: Upper back - Exacerbating factors: Laying on the shoulder for more than two minutes - Relieving factors: Initial relief from sleeping on the shoulder for two nights Physical Exam - Appears afebrile. - Alert and oriented. - Mood and affect appropriate. - Follows and participates in conversation appropriately. Pain Management - Affect: Muscle tightness impacting mobility - Analgesia: Corticosteroid injection provided temporary relief - Adverse Effects: Allergic reaction to corticosteroid injection - Activities of Daily Living: Limited movement for five days post-injection [facility] Medical History (Updated 03/04/25 @ 14:14 by Fadi Morris MD) Left shoulder pain Family history of breast cancer Hemorrhoids with complication Bleeding external hemorrhoids HSV-2 infection Chiari I malformation Anxiety and depression Obesity (BMI 30-39.9) Seizure disorder Tobacco abuse Asthma Surgical History History of hernia repair History of section Family History Maternal Grandmother Breast cancer Sister Substance abuse Mother Bipolar 1 disorder Social History (Updated 12/13/24 @ 08:36 by Ute Dominguez CMA) Housing: Apartment Alcohol intake: current Patient Tobacco Use Status: Former Tobacco user Tobacco use type: Cigarette Cigarettes Per Day: 6 Years Smoked: 10+; Quit 2023 e-Cigarette/Vaping Use: Never Used Substance Use Type: Marijuana service: No Current occupational status: employed Cognitive needs: No Hearing needs: No Vision needs: No Physical Exam Vital Signs: Last Vital Signs Pulse 80 04/04/25 11:55 Resp 16 04/04/25 11:55 BP 98/60 04/04/25 11:55 Pulse Ox 99 04/04/25 11:55 Oxygen Delivery Method Room Air 04/04/25 11:55 BMI result Body Mass Index 31.0 Assessment & Plan Assessment & Plan (1) Supraspinatus tendinitis: Code(s): M75.90 - Shoulder lesion, unspecified, unspecified shoulder Category: Medical (2) Hill Sachs deformity, left: Code(s): S42.292A - Other displaced fracture of upper end of left humerus, initial encounter for closed fracture Category: Medical Plan Plan Patient was informed and verbally consented to the use of an ambient scribe for clinic note documentation during this visit. 1. Muscle Tightness In Upper Back following Shoulder Steroid Injection - Plan to request authorization for platelet-rich plasma (PRP) injection as an alternative treatment. 2. Allergic Reaction To Corticosteroid Injection - Avoid future corticosteroid injections due to adverse reaction. 3. Shoulder Pain - Consider PRP injection for left supraspinatus tendon due to lack of response to physical therapy and corticosteroid injection. Discussion Notes I discussed with the patient the likely allergic reaction to the corticosteroid injection and the short-lived relief it provided for her shoulder pain. We considered platelet-rich plasma (PRP) injection as an alternative treatment and agreed to request authorization for this procedure. The patient was informed about the potential benefits and the rationale for choosing PRP over further corticosteroid injections. Patient Instructions - Avoid corticosteroid injections in the future due to allergic reaction. - Await authorization for PRP injection and follow up with the clinic once approved. Coding Level of Care Code Est Pt Level 3 (35827) Diagnoses Supraspinatus tendinitis M75.90 Hill Sachs deformity, left S42.292A
[2025-04-04 11:55] VITALS: BP 98/60; PULSE 80; RESP 16; O2SAT 99; BMI 31.0
--- OUTSIDE RECORDS SUMMARY | 2025-04-04 13:41 | XMS_ITS | Encounter Summary ---
Author Organization [facility] Address [address] [facility] [address] [place] [phone] Phone Care Team Providers Care Food Stylist Name Role Phone Eli Calvin MD Unavailable James Morgan MD Unavailable [phone] PoMars MD Primary Care Provider [phone] Encounter Details Date Type Department Care Team (Late st Contact Info) Description 01/05/2023 Procedure Pass [facility], [address] [address] Social History Tobacco Use Types Packs/Day Years [...] on file documented as of this encounter Visit Diagnoses Not on filedocumented in this encounter Care Teams Food Stylist Relationship Specialty Start Date End Date Mars Badillo MD [address] [place] [address] Drive [address] [place] [id number] PCP - General 04/25/17 Eli Calvin MD [address] [facility], [address] [address] Historical LMR Provider 04/24/17 James Morgan MD [address] [facility], [address] [address] Historical LMR Provider 04/24/17 documented as of this encounter Additional Source Comments The information contained in this document represents components of the legal health record. It is not the complete legal health record.[facility]
--- OUTSIDE RECORDS SUMMARY | 2025-04-04 13:41 | XMS_ITS | Encounter Summary ---
Author Organization [facility] Address [address] [place] [address] [place] [phone] Phone Care Team Providers Care Pie Filling Mixer Name Role Phone Eli Calvin MD Unavailable James Morgan MD Unavailable Mars Badilol MD Primary Care Provider [phone] Reason for Referral * MRI/CAT Scan - Closed Specialty Diagnoses / Procedures Referred By Contadan t Referred To Contact Radiology Diagnoses Nonintractable headache, unspecified chronicity pattern, unspecified headache type Chiari I malformation Procedures MRI Brain CHG MRI BRAIN COMBO Mani Kennedy MD Phone: tel: fax: [email or web address] Referral ID Status Reason Start Date Expiration Date Visits Re quested Visits Authorized [id number] Closed 12/08/2022 06/06/2023 1 1 Encounter Details Date Type Department Care Team (Latest Contact Info) Description 12/08/2022 Transcribe Orders Virtual Department [address] [place] [address] Mani Kennedy MD [address] [place] [address], [address] [place], [place] [id number] [email or web address] Nonintractable headache, unspecified chronicity pattern, unspecified headache type (Primary Dx); Chiari I malformation Social History Tobacco Use Types Packs/Day Years [...] on file documented as of this encounter Results * MRI BRAIN WITH AND WITHOUT CONTRAST (01/03/2023 5:31 PM EDT) Anatomical Region Laterality Modality Head Magnetic Resonan ce 01/04/2023 8:15 AM EDT Impressions 01/04/2023 7:49 PM EDT Chiari I malformation, as described. 5 mm anterior right caudate body lesion is likely a cavernoma Narrative 01/04/2023 7:49 PM EDT MRI BRAIN WITH AND WITHOUT CONTRAST TECHNIQUE: MRI BRAIN WITH AND WITHOUT CONTRAST Multi-sequence, multi-planar MRI of the brain was performed before and after intravenous contrast. COMPARISON: None FINDINGS: Brain Parenchyma: Low-lying cerebellar tonsils measuring approximately 7 mm below the foramen magnum on the left and 5 mm below the foramen magnum on the right, with a slightly pointed configuration, and mild crowding of the foramen magnum. No evidence of syrinx in the partially imaged upper cord. No evidence of acute infarct, mass lesion, or recent hemorrhage. 5 mm FLAIR hyperintense focus in the anterior right caudate body on 4:17 which demonstrates marked blooming susceptibility effect, and possible punctate enhancement Ventricular System and Extra-Axial Spaces: Normal. No evidence of midline shift or hydrocephalus. Extracranial Structures: Arterial flow voids in the skull base are present. Procedure Note Gatito Saavedra MD - 01/04/2023 MRI BRAIN WITH AND WITHOUT CONTRAST TECHNIQUE: MRI BRAIN WITH AND WITHOUT CONTRAST Multi-sequence, multi-planar MRI of the brain was performed before andafter intravenous contrast. COMPARISON: None FINDINGS: Brain Parenchyma: Low-lying cerebellar tonsils measuring approximately 7mm below the foramen magnum on the left and 5 mm below the foramen magnumon the right, with a slightly pointed configuration, and mild crowding ofthe foramen magnum. No evidence of syrinx in the partially imaged uppercord. No evidence of acute infarct, mass lesion, or recent hemorrhage. 5mm FLAIR hyperintense focus in the anterior right caudate body on 4:17which demonstrates marked blooming susceptibility effect, and possiblepunctate enhancement Ventricular System and Extra-Axial Spaces: Normal. No evidence of midlineshift or hydrocephalus. Extracranial Structures: Arterial flow voids in the skull base arepresent. IMPRESSION: Chiari I malformation, as described. 5 mm anterior right caudate body lesion is likely a cavernoma Mani Kennedy MD IMG MR HEAD/NECK Final Resul t documented in this encounter Visit Diagnoses Diagnosis Nonintractable headache, unspecified chronicity pattern, unspecified headache type- Primary Chiari I malformation Nonintractable headache, unspecified chronicity pattern, unspecified headache type Chiari I malformation documented in this encounter Care Teams Pie Filling Mixer Relationship Specialty Start Date End Date Mars Badillo MD [address] [place] [address] [place] [phone] PCP - General 04/25/17 Eli Calvin MD [address] [place] [phone] [email or web address] Historical LMR Provider 04/24/17 James Morgan MD [address] [place] [phone] [email or web address] Historical LMR Provider 04/24/17 documented as of this encounter Additional Source Comments The information contained in this document represents components of the legal health record. It is not the complete legal health record.[facility]
--- OUTSIDE RECORDS SUMMARY | 2025-04-04 13:41 | XMS_ITS | Encounter Summary ---
Author Organization [facility] Address [address] [place] [address] [place] [address] Phone Care Team Providers Care Security Screener Name Role Phone Eli Calvin MD Unavailable James Morgan MD Unavailable [phone] Mars Badillo MD Primary Care Provider Reason for Referral * MRI/CAT Scan - Closed Specialty Diagnoses / Procedures Referred By Alba t Referred To Contact Radiology Diagnoses Chiari syndrome Cervical radiculopathy Procedures MRI Cervical Spine CHG MRI, CERV SPINE COMBO Mani Kennedy MD [address] [place] [address], [address] [place] [address] Phone: tel: fax: [email or web address] Referral ID Status Reason Start Date Expiration Date Visits Re quested Visits Authorized [id number] Closed 01/05/2023 07/04/2023 1 1 Encounter Details Date Type Department Care Team (Latest Contact Info) Description 01/05/2023 Transcribe Orders Virtual Department 30 [place], [place] [id number] Mani Kennedy MD [address] [place] [address], [address] [place], [place] [id number] [email or web address] Chiari syndrome (Primary Dx); Cervical radiculopathy Social History Tobacco Use Types Packs/Day Years [...] as of this encounter Results * MRI CERVICAL SPINE (NEURO) WITH AND WITHOUT CONTRAST (02/01/2023 11:50 AM EDT) Anatomical Region Laterality Modality C-spine Magnetic Resonan ce 02/01/2023 5:06 PM EDT Impressions 02/01/2023 9:33 PM EDT Minimal cervical spine degenerative changes, without significant spinal canal or foraminal stenosis. No evidence of cervical cord syrinx Narrative 02/01/2023 9:33 PM EDT MRI CERVICAL SPINE (NEURO) WITH AND WITHOUT CONTRAST TECHNIQUE: MRI CERVICAL SPINE (NEURO) WITH AND WITHOUT CONTRAST Multi-sequence, multi-planar MRI of the cervical spine was performed with and without intravenous contrast. COMPARISON: None FINDINGS: CERVICAL SPINE: Vertebrae: Normal. No compression fracture. No bone marrow replacing lesion. Straightening of the cervical lordosis. Spinal Cord: No spinal cord compression or signal abnormality. Soft Tissue: Normal. No prevertebral edema, mass or fluid collection. Other: Low-lying cerebellar tonsils, better assessed on prior dedicated brain MRI. Findings by level: C2-C3: Normal. No spinal canal or foraminal stenosis. C3-C4: Bilateral facet arthropathy. No significant neural foraminal or spinal canal stenosis. C4-C5: Diffuse disc bulge. No significant neural foraminal or spinal canal stenosis. C5-C6: Right facet arthropathy. No significant neural foraminal or spinal canal stenosis. C6-C7: Diffuse disc bulge. No significant neural foraminal or spinal canal stenosis. C7-T1: Normal. No spinal canal or foraminal stenosis. Procedure Note Gatito Saavedra MD - 02/01/2023 MRI CERVICAL SPINE (NEURO) WITH AND WITHOUT CONTRAST TECHNIQUE: MRI CERVICAL SPINE (NEURO) WITH AND WITHOUT CONTRAST Multi-sequence, multi-planar MRI of the cervical spine was performed withand without intravenous contrast. COMPARISON: None FINDINGS: CERVICAL SPINE: Vertebrae: Normal. No compression fracture. No bone marrow replacinglesion. Straightening of the cervical lordosis. Spinal Cord: No spinal cord compression or signal abnormality. Soft Tissue: Normal. No prevertebral edema, mass or fluid collection. Other: Low-lying cerebellar tonsils, better assessed on prior dedicatedbrain MRI. Findings by level: C2-C3: Normal. No spinal canal or foraminal stenosis. C3-C4: Bilateral facet arthropathy. No significant neural foraminal orspinal canal stenosis. C4-C5: Diffuse disc bulge. No significant neural foraminal or spinal canalstenosis. C5-C6: Right facet arthropathy. No significant neural foraminal or spinalcanal stenosis. C6-C7: Diffuse disc bulge. No significant neural foraminal or spinal canalstenosis. C7-T1: Normal. No spinal canal or foraminal stenosis. IMPRESSION: Minimal cervical spine degenerative changes, without significant spinalcanal or foraminal stenosis. No evidence of cervical cord syrinx Mani Kennedy MD IMG MR XSPECIALTY Final Resu lt documented in this encounter Visit Diagnoses Diagnosis Chiari syndrome- Primary Budd-Chiari syndrome Cervical radiculopathy Brachial neuritis or radiculitis nos Chiari syndrome Budd-Chiari syndrome Cervical radiculopathy Brachial neuritis or radiculitis nos documented in this encounter Care Teams Security Screener Relationship Specialty Start Date End Date Mars Badillo MD [address] [place] [address] [place] [phone] PCP - General 04/25/17 Eli Calvin MD [address] [address] Historical LMR Provider 04/24/17 James Morgan MD [address] [place] [address], [address] [address] Historical LMR Provider 04/24/17 documented as of this encounter Additional Source Comments The information contained in this document represents components of the legal health record. It is not the complete legal health record.[facility]
--- OUTSIDE RECORDS SUMMARY | 2025-04-04 13:41 | XMS_ITS | Encounter Summary ---
Author Organization [facility] Address [address] [place] [address] Phone Care Team Providers Care Network Intern Name Role Phone Moira Baig BANK MESSENGER Unavailable [phone] Mars Badillo MD Unavailable [phone] Jemma Hall CNM Unavailable [phone] Jennyfer Neal BANK MESSENGER Unavailable [phone] Eli Calvin MD Unavailable James Morgan MD Unavailable [phone] Radames Serna MD Unavailable [phone] Doris Downey MD Unavailable [phone] Mars Badillo MD Primary Care Provider Encounter Details Date Type Department Care Team (Late st Contact Info) Description 02/09/2018 Procedure Pass [facility] L&D Procedures 30 [place], [place] [id number] Social History Tobacco Use Types Packs/Day Years Used Date Smoking Tobacco: Former Cigarettes Q uit: 06/13/2017 Smokeless Tobacco: Never Alcohol Use Standard Drinks/Week Comments No 0 (1 standard drink = 0.6 oz pur e alcohol) Comments No Sex and Gender Information Value [...] on filedocumented in this encounter Care Teams Network Intern Relationship Specialty Start Date End Date Mars Badillo MD [address] [place] [address] [address] [place] [address] PCP - General 04/25/17 Moira Baig NP [address] [place] [address] Historical LMR Provider 04/24/17 2 Mars Badillo MD [address] [place] [phone] Historical LMR Provider 04/24/17 2 Jemma Hall CNM [address] [place] [address] Historical LMR Provider 04/24/17 2 Jennyfer Neal NP [address] [place] [address] Historical LMR Provider 04/24/17 2 Eli Calvin MD [address] [place] [address] Historical LMR Provider 04/24/17 James Morgan MD [address] [place] [address] [email or web address] Historical LMR Provider 04/24/17 Radames Serna MD [address] [place] [address] Historical LMR Provider 04/24/17 2 Doris Downey MD [address] [place] [address] Historical LMR Provider 04/24/17 07/17/21 documented as of this encounter Additional Source Comments The information contained in this document represents components of the legal health record. It is not the complete legal health record.[facility]
--- OUTSIDE RECORDS SUMMARY | 2025-04-04 13:41 | XMS_ITS | Encounter Summary ---
Author Organization [facility] Address [address] [facility] [address] [place] [address] Phone Care Team Providers Care County Records Management Officer Name Role Phone Eli Clavin MD Unavailable James Morgan MD Unavailable [phone] PoMars MD Primary Care Provider [phone] Encounter Details Date Type Department Care Team (Late st Contact Info) Description 04/07/2023 Procedure Pass [facility], [address] [address] Social History Tobacco Use Types Packs/Day Years [...] on filedocumented in this encounter Care Teams County Records Management Officer Relationship Specialty Start Date End Date Mars Badillo MD [address] [place] [address] Drive [address] [place] [phone] PCP - General 04/25/17 Eli Calvin MD 22 [facility], [address] [address] Historical LMR Provider 04/24/17 James Morgan MD 22 [facility], [address] [address] Historical LMR Provider 04/24/17 documented as of this encounter Additional Source Comments The information contained in this document represents components of the legal health record. It is not the complete legal health record.[facility]
--- OUTSIDE RECORDS SUMMARY | 2025-04-04 13:41 | XMS_ITS | Encounter Summary ---
Author Organization [facility] Address [address] [place] [address] Phone Care Team Providers Care Contract Technical Writer Name Role Phone Moira Baig SHIP ENGINES OPERATING ENGINEER Unavailable [phone] Mars Badillo MD Unavailable [phone] Jemma Hall CNM Unavailable Jennyfer Neal SHIP ENGINES OPERATING ENGINEER Unavailable [phone] Eli Calvin MD Unavailable James Morgan MD Unavailable [phone] Radames Serna MD Unavailable [phone] Doris Downey MD Unavailable [phone] Mars Badillo MD Primary Care Provider [phone] Encounter Details Date Type Department Care Team (Late st Contact Info) Description 04/03/2020 Procedure Pass [place] Admitting Dept - Virtual Department 30 [place], [place] [phone] Social History Tobacco Use Types Packs/Day Years [...] on filedocumented in this encounter Care Teams Contract Technical Writer Relationship Specialty Start Date End Date Mars Badillo MD [address] [phone] PCP - General 04/25/17 Moira Baig NP [address] [place] [address] Historical LMR Provider 04/24/17 2 Mars Badillo MD [address] [phone] Historical LMR Provider 04/24/17 2 Jemma Hall CNM [address] [place] [address] Historical LMR Provider 04/24/17 2 Jennyfer Neal NP [address] [place] [address] Historical LMR Provider 04/24/17 2 Eli Calvin MD [address] [place] [address] [email or web address] Historical LMR Provider 04/24/17 James Morgan MD [address] [place] [address] [email or web address] Historical LMR Provider 04/24/17 Radames Serna MD [address] [place] [address] Historical LMR Provider 04/24/17 2 Doris Downey MD [address] [place] [address] [email or web address] Historical LMR Provider 04/24/17 07/17/21 documented as of this encounter Additional Source Comments The information contained in this document represents components of the legal health record. It is not the complete legal health record.[facility]
--- OUTSIDE RECORDS SUMMARY | 2025-04-04 13:41 | XMS_ITS | Encounter Summary ---
Author Organization [facility] Address [address] [facility] [address] [place] [address] Phone Care Team Providers Care Calender Inspector Name Role Phone Eli Calvin MD Unavailable James Mrogan MD Unavailable [phone] Mars Badillo MD Primary Care Provider [phone] Reason for Referral * MRI/CAT Scan - Closed Specialty Diagnoses / Procedures Referred By Contac t Referred To Contact Radiology Diagnoses Chiari malformation type I Procedures MRI Lumbar Spine CHG MRI, LUMBAR SPINE Fariha Brooks MD Phone: tel: fax: Referral ID Status Reason Start Date Expiration Date Visits Re quested Visits Authorized [id number] Closed 04/07/2023 10/04/2023 1 1 Encounter Details Date Type Department Care Team (Latest Contact Info) Description 04/07/2023 Transcribe Orders Virtual Department 30 [place] [address] Fariha Brooks MD [address] [place] [address] Drive [address] [place] [address] Chiari malformation type I (Primary Dx) Social History Tobacco Use Types Packs/Day Years [...] as of this encounter Results * MRI LUMBAR SPINE (NEURO) WITHOUT CONTRAST (06/11/2023 2:41 PM EST) Anatomical Region Laterality Modality L-spine Magnetic Resonan ce 06/13/2023 7:34 AM EST Impressions 06/13/2023 7:53 AM EST No evidence of nerve root impingement spinal canal stenosis, or foraminal stenosis in the lumbar spine. Narrative 06/13/2023 7:53 AM EST MRI LUMBAR SPINE (NEURO) WITHOUT CONTRAST Referring clinician's provided indication for this examination in Epic: Outside Radiology Order; chiari malformation TECHNIQUE: MRI LUMBAR SPINE (NEURO) WITHOUT CONTRAST Multi-sequence, multi-planar MRI of the lumbar spine was performed without intravenous contrast. COMPARISON: FINDINGS: LUMBAR SPINE: Alignment and Vertebrae: Normal alignment. No compression fracture. Marrow: No bone marrow replacing lesion. Discs and Endplates: Normal intervertebral disc heights and signal. Conus: Normal. Soft Tissues: Normal. No prevertebral edema. Other Findings: Cystic prominence of the left renal sinus is most likely related to benign renal sinus cysts, without definite hydronephrosis. Findings by level: T12-L1: Normal. No spinal or foraminal stenosis. L1-L2: Normal. No spinal or foraminal stenosis. L2-L3: Normal. No spinal or foraminal stenosis. L3-L4: Normal. No spinal or foraminal stenosis. L4-L5: Minimal broad disc bulge, without significant spinal canal or foraminal stenosis. No spinal or foraminal stenosis. L5-S1: Mild facet arthropathy. No spinal or foraminal stenosis. Procedure Note Gatito Saavedra MD - 06/13/2023 MRI LUMBAR SPINE (NEURO) WITHOUT CONTRAST Referring clinician's provided indication for this examination in Epic:Outside Radiology Order; chiari malformation TECHNIQUE: MRI LUMBAR SPINE (NEURO) WITHOUT CONTRAST Multi-sequence, multi-planar MRI of the lumbar spine was performed withoutintravenous contrast. COMPARISON: FINDINGS: LUMBAR SPINE: Alignment and Vertebrae: Normal alignment. No compression fracture. Marrow: No bone marrow replacing lesion. Discs and Endplates: Normal intervertebral disc heights and signal. Conus: Normal. Soft Tissues: Normal. No prevertebral edema. Other Findings: Cystic prominence of the left renal sinus is most likelyrelated to benign renal sinus cysts, without definite hydronephrosis. Findings by level: T12-L1: Normal. No spinal or foraminal stenosis. L1-L2: Normal. No spinal or foraminal stenosis. L2-L3: Normal. No spinal or foraminal stenosis. L3-L4: Normal. No spinal or foraminal stenosis. L4-L5: Minimal broad disc bulge, without significant spinal canal orforaminal stenosis. No spinal or foraminal stenosis. L5-S1: Mild facet arthropathy. No spinal or foraminal stenosis. IMPRESSION: No evidence of nerve root impingement spinal canal stenosis, or foraminalstenosis in the lumbar spine. Fariha Brooks MD IMG MR XSPECIALTY Final Resu lt documented in this encounter Visit Diagnoses Diagnosis Chiari malformation type I- Primary Compression of brain documented in this encounter Care Teams Calender Inspector Relationship Specialty Start Date End Date Po, Mars Andrade MD [address] [place] [address] Drive [address] [place] [phone] PCP - General 04/25/17 Eli Calvin MD [address] [place] [address], [address] [address] Historical LMR Provider 04/24/17 James Morgan MD [address] [place] [address] Historical LMR Provider 04/24/17 documented as of this encounter Additional Source Comments The information contained in this document represents components of the legal health record. It is not the complete legal health record.[facility]
--- OUTSIDE RECORDS SUMMARY | 2025-04-04 13:41 | XMS_ITS | Encounter Summary ---
Author Organization [facility] Address [address] [place] [address] [place] [address] Phone Care Team Providers Care Metal Milling Machine Operator Name Role Phone Moira Baig PLAY THERAPIST Unavailable [phone] Mars Badillo MD Unavailable Jemma Hall CNM Unavailable Jennyfer Neal PLAY THERAPIST Unavailable [phone] Eli Calvin MD Unavailable James Morgan MD Unavailable [phone] Radames Serna MD Unavailable [phone] Doris Downey MD Unavailable [phone] Mars Badillo MD Primary Care Provider Encounter Details Date Type Department Care Team (Late st Contact Info) Description 01/30/2019 EpicOnHand Encounter [facility] Obstetrics - Virtual Department 30 [place], [place] [phone] Jennyfer Dixon CNM 22 [facility], [facility] [address] [place] [address] Social History Tobacco Use Types Packs/Day Years [...] on filedocumented in this encounter Care Teams Metal Milling Machine Operator Relationship Specialty Start Date End Date Mars Badillo MD 2 [facility] [address] [place] [phone] PCP - General 04/25/17 Moira Baig NP [address] [place] [address] Historical LMR Provider 04/24/17 2 Mars Badillo MD 2 [facility] [address] [place] [phone] Historical LMR Provider 04/24/17 2 Jemma Hall CNM 30 [place] [address] Historical LMR Provider 04/24/17 2 Jennyfer Neal NP [address] [place] [address] Historical LMR Provider 04/24/17 2 Eli Calvin MD 22 [facility], [address] [place] [address] Historical LMR Provider 04/24/17 James Morgan MD [address] [place] [address] Historical LMR Provider 04/24/17 Radames Serna MD [address] [place] [address] Historical LMR Provider 04/24/17 2 Doris Downey MD [address] [place] [address] [email or web address] Historical LMR Provider 04/24/17 07/17/21 documented as of this encounter Additional Source Comments The information contained in this document represents components of the legal health record. It is not the complete legal health record.[facility]
--- OUTSIDE RECORDS SUMMARY | 2025-04-04 13:41 | XMS_ITS | Encounter Summary ---
Author Organization [facility] Address [address] [facility] [address] [place] [address] Phone Care Team Providers Care Sales Relationship Manager Name Role Phone Eli Calvin MD Unavailable James Morgan MD Unavailable [phone] PoMars MD Primary Care Provider [phone] Encounter Details Date Type Department Care Team (Late st Contact Info) Description 12/08/2022 Procedure Pass [facility], [address] [address] Social History Tobacco Use Types Packs/Day Years [...] on filedocumented in this encounter Care Teams Sales Relationship Manager Relationship Specialty Start Date End Date Mars Badillo MD [address] [place] [address] Drive [address] [place] [phone] PCP - General 04/25/17 Eli Calvin MD 22 [facility], [address] [address] Historical LMR Provider 04/24/17 James Morgan MD 22 [facility], [address] [address] Historical LMR Provider 04/24/17 documented as of this encounter Additional Source Comments The information contained in this document represents components of the legal health record. It is not the complete legal health record.[facility]
--- OUTSIDE RECORDS SUMMARY | 2025-04-04 13:41 | XMS_ITS | Clinical Summary ---
Author Organization [facility] Address [address] [place] [address] Phone Care Team Providers Care Special Services Director Name Role Phone Eli Calvin MD Unavailable James Morgan MD Unavailable [phone] Po, Mars Andrade MD Primary Care Provider Allergies Active Allergy Reactions Criticality Noted Date Comments Morphine 06/16/2017 Adverse reaction Medications albuterol 90 mcg/actuation inhaler Inhale 2 puffs into the lungs every 6 (six) hours as needed for wheezing. Active ibuprofen (ADVIL,MOTRIN) 600 MG tablet Take 1 tablet (600 mg total) by mouth every 6 (six) hours as needed for pain (specific location in comments). 30 tablet 03/06/2020 Active FLOVENT HFA 110 mcg/actuation inhaler Inhale 2 puffs into the lungs 2 (two) times a day. 04/04/2022 Active Active Problems Problem Noted Date Diagnosed Date RLQ abdominal pain 04/03/2020 Overview (04/03/2020): Pt thinks may be due to IUD Tobacco use 03/06/2020 History of herpes genitalis 03/29/2018 History of absence seizures 06/18/2017 Overview (12/27/2017): Pt was taken off topamax by neurologist at beginning of - no alternative medication started. Pt would like second opinion- referral sent. 07/14/17 Sen request for neuro referral 08/02/[address] Kennedy, EEG done. Has follow up in August with repeat EEG (pending records) *Need records [facility] recommends following Neuro recommendation but could consider restarting topamax in 2nd or third trimester if indicated. [facility] recommends level 2 sono for eval of isha/facial defects due to early exposure to topamax, Normal Per patient: Saw Neurology in November. EEG repeated. They did not feel that she needed to go back on topomax. Marijuana use 06/18/2017 Overview (12/12/2017): Abstinence advised. Pt is ok with urine drug screens- utox sent at [facility] Aware of 51A/possible DCF involvement Consider pedi consult if utox is positive later in 12/12 -Check in at [place] if she has stopped, repeat UTOX Migraine headache without aura 06/18/2017 Overview (08/14/2017): Saw neurologist Dr. Kennedy on 08/02/17 Saw [facility] on 07/31/17, recommended tylenol and fioricet as needed. Patient has short course of fioricet ordered which worked for her last migraine Hx of abnormal cervical Pap smear Overview (08/20/2019): 09/13 LGSIL,,,12/14 colpo CINI,,,05/16 LGSIL; 2018- normal Assessment & Plan (08/20/2019 7:54 PM EST): Due in 2020 Resolved Problems Problem Noted Date Diagnosed Date Resolved Date IUD strings lost 04/03/2020 07/15/2020 Normal , unspecified trimester 02/09/2018 03/29/2018 Anemia affecting in third trimester 12/28/19 18 03/29/2018 Overview (12/27/2017): Hgb 10.5. Was taking iron but it was causing constipation. Has increased dietary sources of iron. Candidal vaginitis 11/07/2017 0 Assessment & Plan (11/07/2017 11:57 AM EDT): We discussed nallely treatment and prevention measures. She will use OTC miconazole. Low-lying placenta in second trimester 10/13/2017 12/27/2017 Overview (10/13/2017): Repeat u/s at 32 weeks per MFM recommendation Rh negative state in antepartum period 07/14/2017 08/20/2019 Overview (12/11/2017): Needs Rhogam at 28 wks 11/28/17 Rhogam PP prn * Herpes simplex virus infection 07/14/2017 09/11/2017 Genital herpes affecting pre gnancy in third trimester 07/14/2017 03/29/2018 Overview (07/14/2017): Will need suppression at 36 wks Previous delivery a ffecting , antepartum 07/14/2017 03/29/2018 Overview (07/14/2017): C/S x 2,leaning towards repeat C/S. Please discuss at later visit Will need MD preop in third trimester if planning C/S Nausea and vomiting in 07/14/2017 01/15/2018 Overview (07/14/2017): Currently taking zofran We discussed risks and benefits Pt to try Vitamin B 6 and Doxylamine Tobacco use disorder 06/18/2017 018 Overview (07/14/2017): Pt has quit! Supervision of high risk pre gnancy in third trimester 06/18/2017 03/29/2018 Overview (01/11/2018): CNM- needs MD consult in 3rd trimester for preop (rpt c/s) Rh Neg Flu n/a Tdap 12/18/2017 Hgb 10.5 GTT 97 GBS * PPBC * Immunizations Immunization Administration Dates Next Due COVID-19 (Pre-05/01) Moderna Vaccine, mRNA, PF 0 11/28/2020 Influenza Quadrivalent Preservative Free IM 09/2019,09/12/2017 Pneumococcal conjugate PCV20 04/04/2022 Rho (D) Immune Globulin 02/09/2018,11/28/2017 Tdap 12/29/2021,12/18/2017 Family History Medical History Relation Comments Breast cancer Maternal Grandmother Relation Status Comments Brother Alive Daughter Alive Father Alive Maternal Grandmother Mother Alive Sister 1 Alive Sister 2 Alive Sister 3 Alive Son Alive Social History Tobacco Use Types Packs/Day Years Used Date Smoking Tobacco: Every Day Cigarettes Smokeless Tobacco: Never Tobacco Cessation:Ready to Q uit: No; Counseling Given: No Alcohol Use Standard Drinks/Week Comments Not Currently [...] file Not on file Not on file Last Filed Vital Signs Vital Sign Reading Time Taken Comments Blood Pressure 142/92 12/10/2024 10:28 AM EDT Pulse 69 12/10/2024 10:28 AM EDT Temperature 36.4 C (97.6 F) 12/10/2024 10:28 AM EDT Respiratory Rate 16 12/10/2024 10:28 AM EDT Oxygen Saturation 100% 12/10/2024 10:28 AM EDT Inhaled Oxygen Concentration - - Weight 87.1 kg (192 lb) 04/29/2023 10:02 AM EDT Height 167.6 cm (5' 6 ) 04/29/2023 10:02 AM EDT Body Mass Index 30.99 04/29/2023 10:02 AM EDT Plan of Treatment Health Maintenance Due Date Last Done Comments DEPRESSION SCREENING 2000 SMOKING Hx and SMOKELESS TOBACCO SCREENING 2001 PAP SMEAR 07/15/2023 07/15/2020, 07/14/2017, 07/14/2017 INFLUENZA VACCINE (#1) 2025 , 09/12/2017 COVID-19 VACCINE (3 - 2024-2 6 season) 2025 12/26/2020, 11/28/2020 SCREENING FOR DIABETES 12/20/2025 12/20/2022 Adult Td,Tdap Booster 12/30/2031 12/29/2021 , 12/18/2017 HEPATITIS C SCREENING Completed 06/30/2017 HIV ONE-TIME SCREENING (18-6 5 YEARS) Completed 06/30/2017 PNEUMOCOCCAL VACCINES (0-49 years) Completed 04/04/2022 HEPATITIS A VACCINES Aged Out No long er eligible based on patient's age to complete this topic HIB VACCINES Aged Out No longer eligi ble based on patient's age to complete this topic MENINGOCOCCAL VACCINES (ACWY) Aged Out No longer eligible based on patient's age to complete this topic MENINGOCOCCAL VACCINES (B) Aged Out N o longer eligible based on patient's age to complete this topic Medical Devices Implanted Type Area Patient Attendant Device Identifier Shelf Expiration Date Model / Serial / Lot Mesh Mesh Abdomen Procedures Procedure Name Priority Date/Time Associated Diagnosis Comments PAP TEST Routine 07/15/2020 12:00 AM EST HEPATITIS C ANTIBODY, QUALITATIVE Routine 06/30/2017 10:18 AM EST Supervision of high risk in first trimester from Last 3 Months or Most Recently Relevant to Health Maintenance Results * Pap Smear (07/15/2020 12:00 AM EST) 07/15/2020 07/16/2020 9:0 4 AM EST Narrative SEE NARRATIVE - 07/21/2020 9:30 AM EST [address] [address] Applications Programmer: Doris Renee MD GAUGE CONTROLLER Cytology Report FINAL DIAGNOSIS A. PAP SMEAR (SUREPATH) CE: SPECIMEN ADEQUACY: Satisfactory for evaluation; transformation zone present. INTERPRETATION: NEGATIVE FOR INTRAEPITHELIAL LESION OR MALIGNANCY. Coccobacilli consistent with shift in celia Electronically Signed Out By: Leon Daomn CT(ASCP) The Pap test is a screening test primarily for squamous cancers and precursors and has associated false-negative and false-positive results. New technologies such as liquid-based preparations may decrease but will not eliminate all false-negative results. Regular sampling and follow-up of unexplained clinical signs and symptoms are recommended to minimize false negative results. PROCEDURES/ADDENDA HPV Testing (Requested) Ordered Date: 07/16/2020 A. PAP SMEAR (SUREPATH) CE: Human Papilloma Virus Test Negative for high-risk human papillomavirus types 16, 18, 45 and the Other high risk probe set (Includes 31, 33, 35, 39, 51, 52, 56, 58, 59, 66, 68) by [id number] HR-HPV analysis. Clinical correlation is advised. This HPV test was performed at [facility], [address] [place] [address]. This test has been FDA approved for SurePath cervical cytology specimens. The accuracy and precision of this test for all other specimen sources has been verified in the Cytopathology Laboratory of the [facility] and has not been cleared or approved by the U.S. Food and Drug Administration. Clinical correlation is advised. CLINICAL HISTORY Date of Last Menstrual Period: Not Provided Menstrual History: Unknown Other Clinical Conditions: Screening Pap SPECIMEN SOURCE A: PAP SMEAR (SUREPATH) CE Patient Name: HOPE HAJI : 1990 (Age: 30) Sex: F Institution: [facility] Location: [facility] Date of Collection: 07/15/2020 Date of Reported: 07/20/2020 14:57 Results to: Eli Calvin MD Eli Calvin MD CYTOLOGY ORDERABLES Edited Resul t - Final SEE NARRATIVE * Hepatitis C antibody, qualitative (06/30/2017 10:18 AM EST) HCV Negative Negative [facility] Comment: This is a screening test and should be confirmed with molecular testing Blood 06/30/2017 10:1 8 AM EST 06/30/2017 10:24 AM EST us Shawna aTylor [facility] BLOOD ORDERABLES Fin al Result [facility] [address] [place] [address] from Last 3 Months or Most Recently Relevant to Health Maintenance Insurance [place] [address] [place] [address] [place] [address] [place] [address] [place] [address] [place] [address] ACO [facility] [place] [address] [address] [place] [address] [place] [address] [place] [address] [place] [address] [place] [address] [place] [address] ACO Advance Directives For more information, please contact: [phone] (9AM - 5PM [facility], Monday-Monday) Documents on File Type Date Recorded Patient Fire Equipment Inspector Viviane hendricks Healthcare Proxy 02/14/2018 1:28 PM * Full Code (Presumed) (Latest Code Status on File) Date Activated Date Inactivated Comments 02/09/2018 9:16 AM 02/13/2018 2:45 PM * Full Code (Presumed) Date Activated Date Inactivated Comments 02/09/2018 5:38 AM 02/09/2018 9:16 AM Healthcare Agents on File Name Relationship Healthcare Agent Relationshi p Communication Sherif Haji Spouse .Primary Health Care Agent (Proxy form on file) Care Teams Special Services Director Relationship Specialty Start Date End Date Po, Mars Andrade MD [address] [place] [address] [place] [phone] PCP - General 04/25/17 Eli Calvin MD [address] [place] [address] Historical LMR Provider 04/24/17 James Morgan MD [address] [place] [address], [address] [address] Historical LMR Provider 04/24/17 Additional Source Comments The information contained in this document represents components of the legal health record. It is not the complete legal health record.[facility]
== END 2025-04-04 12:25 | disposition home or self-care (01) ==
LOC: HO.PMC 11:49
PROVIDERS: PCP Internal Medicine; Visit Provider Internal Medicine
DX: M75.90 Shoulder lesion, unspecified, unspecified shoulder (principal); S42.292A Other displaced fracture of upper end of left humerus, initial encounter for closed fracture
CPT/HCPCS: 99213

== ENCOUNTER → 2025-04-04 11:49 | Outpatient (BNVA) | payer OTHER, SELFPAY | PROVIDERS: PCP Internal Medicine; Visit Provider Internal Medicine | DX: S42.292D Other displaced fracture of upper end of left humerus, subsequent encounter for fracture with routine healing (principal); M75.92 Shoulder lesion, unspecified, left shoulder | CPT/HCPCS: 99212 ==

== ENCOUNTER 2025-04-21 16:24 | Outpatient (AMB) | payer OTHER, SELFPAY ==
--- OUTSIDE RECORDS SUMMARY | 2022-07-19 16:10 | XMS_ITS | Encounter Summary ---
Author Organization [facility] Address [address] [place] [address] Phone Care Team Providers Care Depot Manager Name Role Phone Eli Calvin MD Unavailable James Morgan MD Unavailable [phone] Mars Badillo MD Primary Care Provider [phone] Encounter Details Date Type Department Care Team (Late st Contact Info) Description 07/19/2022 3:[address] [facility] Hospital Encounter [facility] [address] [place] [address] Freya Graham, [facility] [address] [facility], [address] [place] [address] [email or web address] Social History Tobacco Use Types Packs/Day Years Used Date Smoking Tobacco: Every Day Cigarettes Smokeless Tobacco: Never Alcohol Use Standard Drinks/Week Comments Not Currently 0 (1 standard drink = 0.6 oz pur e alcohol) Education Answer Date Recorded Are you interested in more education? Not on yuni e 11/04/2022 Are you concerned about learning? Not on file 11/04/2022 No 11/04/2022 No 11/04/2022 Digital Access Answer Date Recorded No 12/05/2022 No 12/05/2022 Reliable internet access at home? Not on file 12/05/2022 Device with a working camera? Not on file Comments No Sex and Gender Information Value Date Recorded Sex Assigned at Female 07/17/2017 9:38 AM EST Legal Sex Female 9:08 PM EDT Gender Identity Female 07/17/2017 9:38 AM EST Sexual Orientation Straight 07/17/2017 9: 38 AM EST Occupation Industry Job Start Date Job End Date stay at home mom Not on file Not on file Not on file documented as of this encounter Plan of Treatment Not on file documented as of this encounter Procedures Procedure Name Priority Date/Time Associated Diagnosis Comments XR ANKLE 3 OR MORE VIEWS (RIGHT) Urgent/patient waiting 07/19/2022 3:21 PM EST Closed avulsion fracture of lateral malleolus of right fibula, initial encounter documented in this encounter Results * XR ANKLE 3 OR MORE VIEWS (RIGHT) (07/19/2022 3:21 PM EST) Anatomical Region Laterality Modality Ankle Right Computed Radiogr aphy 07/19/2022 3:24 PM EST Impressions 07/19/2022 3:25 PM EST Right ankle: Tiny avulsion fracture fragment from the tip of the lateral malleolus, age indeterminate. Overlying soft tissue swelling. No additional fracture. The ankle mortise and talar dome are intact. Right foot: No displaced fracture or dislocation. Narrative 07/19/2022 3:25 PM EST XR ANKLE 3 OR MORE VIEWS (RIGHT), XR FOOT 3 OR MORE VIEWS (RIGHT) COMPARISON: None Procedure Note Thad Galan MD, PhD - 07/19/2022 XR ANKLE 3 OR MORE VIEWS (RIGHT), XR FOOT 3 OR MORE VIEWS (RIGHT) COMPARISON: None IMPRESSION: Right ankle: Tiny avulsion fracture fragment from the tip of the lateralmalleolus, age indeterminate. Overlying soft tissue swelling. Noadditional fracture. The ankle mortise and talar dome are intact. Right foot: No displaced fracture or dislocation. Freya Graham AUDIO VIDEO TECHNICIAN IMG XR LOWER EXTREMITY Final Result documented in this encounter Visit Diagnoses Not on filedocumented in this encounter Care Teams Depot Manager Relationship Specialty Start Date End Date Justino, Mars Andrade MD [address] [place] [address] [place] [phone] PCP - General 04/25/17 Eli Calvin MD [address] [place] [address] Historical LMR Provider 04/24/17 James Morgan MD [address] [place] [address] Historical LMR Provider 04/24/17 documented as of this encounter Additional Source Comments The information contained in this document represents components of the legal health record. It is not the complete legal health record.[facility]
--- OUTSIDE RECORDS SUMMARY | 2022-07-19 16:11 | XMS_ITS | Encounter Summary ---
Author Organization [facility] Address [address] [place] [address] Phone Care Team Providers Care Forms Examiner Name Role Phone Eli Calvin MD Unavailable James Morgan MD Unavailable [phone] Mars Badillo MD Primary Care Provider [phone] Encounter Details Date Type Department Care Team (Late st Contact Info) Description 07/19/2022 3:11 PM [facility] Hospital Encounter [facility] [address] [place] [address] Freya Graham, [facility] 3640 [facility] [place], [facility] [address] [place] [address] [email or web address] Social History Tobacco Use Types Packs/Day Years [...] No displaced fracture or dislocation. Freya Graham BELT TURNER IMG XR LOWER EXTREMITY Final Result documented in this encounter Visit Diagnoses Not on filedocumented in this encounter Care Teams Forms Examiner Relationship Specialty Start Date End Date Justino, Mars Andrade MD [address] [place] [address] [place] [phone] PCP - General 04/25/17 Eli Calvin MD [address] [place] [address] Historical LMR Provider 04/24/17 James Morgan MD [address] [place] [address] Historical LMR Provider 04/24/17 documented as of this encounter Additional Source Comments The information contained in this document represents components of the legal health record. It is not the complete legal health record.[facility]
--- OUTSIDE RECORDS SUMMARY | 2025-04-21 16:27 | XMS_ITS | Encounter Summary ---
Author Organization [facility] Address [facility] [address] [place] [address] Phone Care Team Providers Care Lead Die Molder Name Role Phone Eli Calvin MD Unavailable James Morgan MD Unavailable [phone] PoMars MD Primary Care Provider [phone] Encounter Details Date Type Department Care Team (Late st Contact Info) Description 01/05/2023 Procedure Pass [facility], [address] [address] Social History Tobacco Use Types Packs/Day Years [...] on filedocumented in this encounter Care Teams Lead Die Molder Relationship Specialty Start Date End Date Mars Badillo MD [address] [place] [address] Drive [address] [place] [phone] PCP - General 04/25/17 Eli Calvin MD [facility], [address] [address] Historical LMR Provider 04/24/17 James Morgan MD [facility], [address] [address] Historical LMR Provider 04/24/17 documented as of this encounter Additional Source Comments The information contained in this document represents components of the legal health record. It is not the complete legal health record.[facility]
--- OUTSIDE RECORDS SUMMARY | 2025-04-21 16:27 | XMS_ITS | Encounter Summary ---
Author Organization [facility] Address [address] [place] [address] [place] [address] Phone Care Team Providers Care Broker In Charge Name Role Phone Eli Calvin MD Unavailable James Morgan MD Unavailable [phone] Mars Badillo MD Primary Care Provider Reason for Referral * MRI/CAT Scan - Closed Specialty Diagnoses / Procedures Referred By Alba t Referred To Contact Radiology Diagnoses Chiari syndrome Cervical radiculopathy Procedures MRI Cervical Spine CHG MRI, CERV SPINE COMBO Mani Kennedy MD [address] [place] [address], [address] [place] [address] Phone: tel: fax: [email or web address] Referral ID Status Reason Start Date Expiration Date Visits Re quested Visits Authorized [id number] Closed 01/05/2023 07/04/2023 1 1 Encounter Details Date Type Department Care Team (Latest Contact Info) Description 01/05/2023 Transcribe Orders Virtual Department [address] [place], [place] [phone] Mani Kennedy MD [address] [place] [address], [address] [place], [place] [phone] [email or web address] Chiari syndrome (Primary Dx); Cervical radiculopathy [...] nos documented in this encounter Care Teams Broker In Charge Relationship Specialty Start Date End Date Mars Badillo MD [address] [place] [address] [place] [phone] PCP - General 04/25/17 lEi Calvin MD [address] [address] Historical LMR Provider 04/24/17 James Morgan MD [address] [place] [address], [address] [address] Historical LMR Provider 04/24/17 documented as of this encounter Additional Source Comments The information contained in this document represents components of the legal health record. It is not the complete legal health record.[facility]
--- OUTSIDE RECORDS SUMMARY | 2025-04-21 16:27 | XMS_ITS | Encounter Summary ---
Author Organization [facility] Address [address] [place] [address] [place] [address] Phone Care Team Providers Care Wet Machine Cutter Name Role Phone Moira Baig BUSHEL WORKER Unavailable [phone] Mars Badillo MD Unavailable [phone] Jemma Hall CNM Unavailable Jennyfer Neal BUSHEL WORKER Unavailable [phone] Eli Calvin MD Unavailable James Morgan MD Unavailable [phone] Radames Serna MD Unavailable [phone] Doris Downey MD Unavailable [phone] Mars Badillo MD Primary Care Provider [phone] Encounter Details Date Type Department Care Team (Late st Contact Info) Description 02/09/2018 Procedure Pass [facility] L[facility]D Procedures [address] [place], [place] [id number] Social History Tobacco Use Types Packs/Day Years [...] on filedocumented in this encounter Care Teams Wet Machine Cutter Relationship Specialty Start Date End Date Mars Badillo MD [address] [place] [address] [address] [place] [address] PCP - General 04/25/17 Moira Baig NP [address] [place] [address] Historical LMR Provider 04/24/17 2 Mars Badillo MD [address] [place] [phone] Historical LMR Provider 04/24/17 2 Jemma Hall CNM [address] [place] [address] Historical LMR Provider 04/24/17 2 Jennyfer Neal NP [address] [place] [address] Historical LMR Provider 04/24/17 2 Eli Calvin MD [address] [place] [address] Historical LMR Provider 04/24/17 James Morgan MD [address] [place] [address] [email or web address] Historical LMR Provider 04/24/17 Radames Serna MD [address] [place] [address] Historical LMR Provider 04/24/17 2 Doris Downey MD [address] [place] [address] [email or web address] Historical LMR Provider 04/24/17 07/17/21 documented as of this encounter Additional Source Comments The information contained in this document represents components of the legal health record. It is not the complete legal health record.[facility]
--- OUTSIDE RECORDS SUMMARY | 2025-04-21 16:27 | XMS_ITS | Encounter Summary ---
Author Organization [facility] Address [facility] [employer] [facility] [address] [place] [address] Phone Care Team Providers Care District Court Reporter Name Role Phone Eli Calvin MD Unavailable James Morgan MD Unavailable [phone] PoMars MD Primary Care Provider [phone] Encounter Details Date Type Department Care Team (Late st Contact Info) Description 04/07/2023 Procedure Pass [facility], [address] [address] Social History Tobacco Use Types Packs/Day Years [...] on filedocumented in this encounter Care Teams District Court Reporter Relationship Specialty Start Date End Date Mars Badillo MD [address] [place] [address] Drive [address] [place] [phone] PCP - General 04/25/17 Eli Calvin MD [facility], [address] [address] Historical LMR Provider 04/24/17 James Morgan MD [facility], [address] [address] Historical LMR Provider 04/24/17 documented as of this encounter Additional Source Comments The information contained in this document represents components of the legal health record. It is not the complete legal health record.[facility]
--- OUTSIDE RECORDS SUMMARY | 2025-04-21 16:27 | XMS_ITS | Encounter Summary ---
Author Organization [facility] Address [address] [facility] [address] [place] [address] Phone Care Team Providers Care Restaurant Line Server Name Role Phone Eli Calvin MD Unavailable James Morgan MD Unavailable [phone] Mars Badillo MD Primary Care Provider [phone] Reason for Referral * MRI/CAT Scan - Closed Specialty Diagnoses / Procedures Referred By Contac t Referred To Contact Radiology Diagnoses Chiari malformation type I Procedures MRI Lumbar Spine CHG MRI, LUMBAR SPINE Fariha Brooks MD Phone: tel: fax: Referral ID Status Reason Start Date Expiration Date Visits Re quested Visits Authorized [id number] Closed 04/07/2023 10/04/2023 1 1 Encounter Details Date Type Department Care Team (Latest Contact Info) Description 04/07/2023 Transcribe Orders Virtual Department 30 [place] [address] Fariha Brooks MD [address] [place] [address] Drive [address] [place] [address] Chiari malformation type I (Primary Dx) Social [...] brain documented in this encounter Care Teams Restaurant Line Server Relationship Specialty Start Date End Date Po, Mars Andrade MD [address] [place] [address] Drive [address] [place] [phone] PCP - General 04/25/17 Eli Calvin MD [address] [place] [address], [address] [address] Historical LMR Provider 04/24/17 James Morgan MD [address] [place] [address] Historical LMR Provider 04/24/17 documented as of this encounter Additional Source Comments The information contained in this document represents components of the legal health record. It is not the complete legal health record.[facility]
--- OUTSIDE RECORDS SUMMARY | 2025-04-21 16:27 | XMS_ITS | Encounter Summary ---
Author Organization [facility] Address [address] [place] [address] [place] [address] Phone Care Team Providers Care Travel Registered Nurse Nicu Name Role Phone Moira Baig COAL DIGGER Unavailable Mars Badillo MD Unavailable Jemma Hall CNM Unavailable Jennyfer Neal COAL DIGGER Unavailable [phone] Eli Calvin MD Unavailable James Morgan MD Unavailable Radames Serna MD Unavailable [phone] Doris Downey MD Unavailable Mars Badillo MD Primary Care Provider [phone] Encounter Details Date Type Department Care Team (Late st Contact Info) Description 01/30/2019 [employer] Encounter [facility] Ob[facility]s - Virtual Department 30 [place], [place] [phone] Jennyfer Dixon CNM [facility] [address] [place] [address] Social History Tobacco Use Types Packs/Day Years [...] on filedocumented in this encounter Care Teams Travel Registered Nurse Nicu Relationship Specialty Start Date End Date Mars Badillo MD [address] [facility] [address] [place] [phone] PCP - General 04/25/17 Moira Baig NP [address] [place] [address] Historical LMR Provider 04/24/17 2 Mars Badillo MD [address] [facility] [address] [place] [phone] Historical LMR Provider 04/24/17 2 Jemma Hall CNM 30 [place] [address] Historical LMR Provider 04/24/17 2 Jennyfer Neal NP [address] [place] [address] Historical LMR Provider 04/24/17 2 Eli Calvin MD 22 [facility], [address] [place] [address] Historical LMR Provider 04/24/17 James Morgan MD [address] [place] [address] Historical LMR Provider 04/24/17 Radames Serna MD [address] [place] [address] Historical LMR Provider 04/24/17 2 Doris Downey MD [address] [place] [address] [email or web address] Historical LMR Provider 04/24/17 07/17/21 documented as of this encounter Additional Source Comments The information contained in this document represents components of the legal health record. It is not the complete legal health record.[facility]
--- OUTSIDE RECORDS SUMMARY | 2025-04-21 16:27 | XMS_ITS | Encounter Summary ---
Author Organization [facility] Address [facility] [address] [place] [address] Phone Care Team Providers Care Cement Finisher Apprentice Name Role Phone Eli Calvin MD Unavailable James Morgan MD Unavailable [phone] PoMars MD Primary Care Provider [phone] Encounter Details Date Type Department Care Team (Late st Contact Info) Description 12/08/2022 Procedure Pass [facility], [address] [address] Social History Tobacco Use Types Packs/Day Years [...] on filedocumented in this encounter Care Teams Cement Finisher Apprentice Relationship Specialty Start Date End Date Mars Badillo MD [address] [place] [address] [address] [place] [phone] PCP - General 04/25/17 Eli Calvin MD 22 [facility], [address] [address] Historical LMR Provider 04/24/17 James Morgan MD [address] [facility], [address] [address] Historical LMR Provider 04/24/17 documented as of this encounter Additional Source Comments The information contained in this document represents components of the legal health record. It is not the complete legal health record.[facility]
--- OUTSIDE RECORDS SUMMARY | 2025-04-21 16:27 | XMS_ITS | Encounter Summary ---
Author Organization [facility] Address [address] [place] [address] [place] [address] Phone Care Team Providers Care Wire Bender Name Role Phone Eli Calvin MD Unavailable James Morgan MD Unavailable [phone] Mars Badillo MD Primary Care Provider [phone] Reason for Referral * MRI/CAT Scan - Closed Specialty Diagnoses / Procedures Referred By Contadan t Referred To Contact Radiology Diagnoses Nonintractable headache, unspecified chronicity pattern, unspecified headache type Chiari I malformation Procedures MRI Brain CHG MRI BRAIN COMBO Mani Kennedy MD Phone: tel: fax: [email or web address] Referral ID Status Reason Start Date Expiration Date Visits Re quested Visits Authorized [id number] Closed 12/08/2022 06/06/2023 1 1 Encounter Details Date Type Department Care Team (Latest Contact Info) Description 12/08/2022 Transcribe Orders Virtual Department [address] [place] [address] Mani Kennedy MD [address] [place] [address], [address] [place], [place] [id number] [email or web address] Nonintractable headache, unspecified chronicity pattern, [...] malformation documented in this encounter Care Teams Wire Bender Relationship Specialty Start Date End Date Mars Badillo MD [address] [place] [address] [place] [phone] PCP - General 04/25/17 Eli Calvin MD [address] [place] [address] [email or web address] Historical LMR Provider 04/24/17 James Morgan MD [address] [place] [address] [email or web address] Historical LMR Provider 04/24/17 documented as of this encounter Additional Source Comments The information contained in this document represents components of the legal health record. It is not the complete legal health record.[facility]
--- OUTSIDE RECORDS SUMMARY | 2025-04-21 16:27 | XMS_ITS | Encounter Summary ---
Author Organization [facility] Address [address] [place] [address] Phone Care Team Providers Care Director Of Cardiac Cath Lab Name Role Phone Moira Baig PLASTICS REPAIRER Unavailable [phone] Mars Badillo MD Unavailable [phone] Jemma Hall CNM Unavailable [phone] Jennyfer Neal PLASTICS REPAIRER Unavailable [phone] Eli Calvin MD Unavailable James Morgan MD Unavailable [phone] Radames Serna MD Unavailable [phone] Doris Downey MD Unavailable [phone] Mars Badillo MD Primary Care Provider Encounter Details Date Type Department Care Team (Late st Contact Info) Description 04/03/2020 Procedure Pass OR Admitting Dept - Virtual Department [address] [place], [place] [id number] Social History Tobacco Use Types Packs/Day Years [...] on filedocumented in this encounter Care Teams Director Of Cardiac Cath Lab Relationship Specialty Start Date End Date Mars Badillo MD [address] [phone] PCP - General 04/25/17 Moira Baig NP [address] [place] [address] Historical LMR Provider 04/24/17 2 Mars Badillo MD [address] [phone] Historical LMR Provider 04/24/17 2 Jemma Hall CNM [address] [place] [address] Historical LMR Provider 04/24/17 2 Jennyfer Neal NP [address] [place] [address] Historical LMR Provider 04/24/17 2 Eli Calvin MD [address] [place] [address] [email or web address] Historical LMR Provider 04/24/17 James Morgan MD [address] [place] [address] [email or web address] Historical LMR Provider 04/24/17 Radames Serna MD [address] [place] [address] Historical LMR Provider 04/24/17 2 Doris Downey MD [address] [place] [address] [email or web address] Historical LMR Provider 04/24/17 07/17/21 documented as of this encounter Additional Source Comments The information contained in this document represents components of the legal health record. It is not the complete legal health record.[facility]
--- OUTSIDE RECORDS SUMMARY | 2025-04-21 16:27 | XMS_ITS | Clinical Summary ---
Author Organization [facility] Address [address] [place] [address] Phone Care Team Providers Care Book Sewing Machine Operator Name Role Phone Eli Calvin MD Unavailable James Morgan MD Unavailable [phone] Po, Mars Andrade MD Primary Care Provider [phone] Allergies Active Allergy Reactions Criticality Noted Date [...] with repeat EEG (pending records) *Need records [facility] recommends following Neuro recommendation but could consider restarting topamax in 2nd or third trimester if indicated. [facility] recommends level 2 sono for eval of isha/facial defects due to early exposure to topamax, Normal Per patient: Saw Neurology in November. EEG repeated. They did not feel that she needed to go back on topomax. Marijuana use 06/18/2017 Overview (12/12/2017): Abstinence advised. Pt is ok with urine drug screens- utox sent at [facility] Aware of 51A/possible DCF involvement Consider pedi consult if utox is positive later in 12/12 -Check in at [place] if she has stopped, repeat UTOX Migraine headache without aura 06/18/2017 Overview (08/14/2017): Saw neurologist Dr. Kennedy on 08/02/17 Saw [facility] on 07/31/17, recommended tylenol and fioricet as [...] this topic Medical Devices Implanted Type Area Artificial Flower Maker Device Identifier Shelf Expiration Date Model / [...] SEE NARRATIVE - 07/21/2020 9:30 AM EST [address] [address] Ball Points Inspector: Doris Renee MD CARDIOVASCULAR RADIOLOGIC TECHNOLOGIST Cytology Report FINAL DIAGNOSIS A. PAP SMEAR (SUREPATH) CE: SPECIMEN ADEQUACY: Satisfactory for evaluation; transformation zone present. INTERPRETATION: NEGATIVE FOR INTRAEPITHELIAL LESION OR MALIGNANCY. Coccobacilli consistent with shift in celia Electronically Signed Out By: Leon Damon CT(ASCP) The Pap test is a screening [...] 52, 56, 58, 59, 66, 68) by [employer] HR-HPV analysis. Clinical correlation is advised. This HPV test was performed at [facility], [address] [place] [address]. This test has been FDA approved for SurePath cervical cytology specimens. The accuracy and precision of this test for all other specimen sources has been verified in the Cytopathology Laboratory of the [facility] and has not been cleared or approved by the U.S. Food and Drug Administration. Clinical correlation is advised. CLINICAL HISTORY Date of Last Menstrual Period: Not Provided Menstrual History: Unknown Other Clinical Conditions: Screening Pap SPECIMEN SOURCE A: PAP SMEAR (SUREPATH) CE Patient Name: HOPE HAJI : 1990 (Age: 30) Sex: F Institution: [facility] Date of Collection: 07/15/2020 Date of Reported: 07/20/2020 14:57 Results to: Eli Calvin MD Eli Calvin MD CYTOLOGY ORDERABLES Edited Resul t - Final SEE NARRATIVE * Hepatitis C antibody, qualitative (06/30/2017 10:18 AM EST) HCV Negative Negative [facility] Comment: This is a screening test and should be confirmed with molecular testing Blood 06/30/2017 10:1 8 AM EST 06/30/2017 10:24 AM EST us Shawna Taylor [facility] BLOOD ORDERABLES Fin al Result [facility] [address] [place] [address] from Last 3 Months or Most Recently Relevant to Health Maintenance [place] [address] [place] [address] [place] [address] [place] [address] [place] [address] [place] [address] ACO [facility] [address] [place] [address] [address] [place] [address] [place] [address] [place] [address] [place] [address] [place] [address] ACO Advance Directives For more information, please contact: [phone] (9AM - 5PM [facility], Monday-Monday) Documents on File Type Date Recorded Patient Marker Shipments [facility] Proxy 02/14/2018 1:28 PM [...] Agent (Proxy form on file) Care Teams Book Sewing Machine Operator Relationship Specialty Start Date End Date Po, Mars Andrade MD [address] [place] [address] [place] [phone] PCP - General 04/25/17 Eli Calivn MD [address] [place] [address] Historical LMR Provider 04/24/17 James Morgan MD [address] [place] [address], [address] [address] Historical LMR Provider 04/24/17 Additional Source Comments The information contained in this document represents components of the legal health record. It is not the complete legal health record.[facility]
--- NOTE | 2025-04-21 16:34 | A.OFFPC_ITS ---
Vital Signs 04/21/25 16:35 Height 5 ft 6 in Weight 196 lb 2 oz BMI 31.7 BP 100/62 Blood Pressure Location Rt brachial Position Sitting Respiration 18 Pulse 67 Pulse Source Pulse Oximeter Temp 97.3 F Temp Source Temporal Artery Scan Pulse Oximetry (%) 98 Oxygen Delivery Method Room Air Intake Visit Reasons: Sore throat Director Of State Required: No Accompanied by: Self / Same As Patient Allergies morphine (MORPHINE) Allergy (Severe, Verified 04/21/25 16:35) SOB/TREMORS, shortness of breath, shortness of breath levetiracetam (Keppra) Allergy (Unknown, Verified 04/21/25 16:35) twitching Tobacco use date assessed: 04/21/25 Dental Screening Dental Screen Date: 04/21/25 Did you have a dental visit in the last 12 months?: Yes Did you have a dental problem in the last 6 months where you did not have access to dental care?: No Was dental information given to patient?: Patient has dentist HPI HPI Comments History of Present Illness Details The patient is a 34-year-old female presenting with neck pain and swelling. Symptoms began on Monday, with significant pain and swelling in the neck region. No fever or chills reported, and no recent exposure to sick individuals. Symptoms suggestive of allergic rhinitis include sneezing and nighttime throat discomfort. Iraida provides partial relief for about 6 to 8 hours, despite being a 24-hour medication. History of a canker sore, noted to be enlarging and causing discomfort. The relationship between the canker sore and neck symptoms is unclear, but they may be related. [facility] Medical History (Updated 04/21/25 @ 16:53 by Imani Esqueda MD) Left shoulder pain Family history of breast cancer Hemorrhoids with complication Bleeding external hemorrhoids HSV-2 infection Chiari I malformation Anxiety and depression Obesity (BMI 30-39.9) Seizure disorder Tobacco abuse Asthma Surgical History History of hernia repair History of section Family History Maternal Grandmother Breast cancer Sister Substance abuse Mother Bipolar 1 disorder Social History (Updated 12/13/24 @ 08:36 by Ute Dominguez CMA) Housing: Apartment Alcohol intake: current Patient Tobacco Use Status: Former Tobacco user Tobacco use type: Cigarette Cigarettes Per Day: 6 Years Smoked: 10+; Quit 2023 e-Cigarette/Vaping Use: Never Used Substance Use Type: Marijuana service: No Current occupational status: employed Cognitive needs: No Hearing needs: No Vision needs: No Questionnaire Thrive Questionnaire Date Thrive assessed: 12/13/24 I am a: Patient What is your living situation today?: I have a steady place to live Within the past 12 months, did the food you bought not last and you didn't have the money to get more?: Never true Within the past 12 months, did you worry whether your food would run out before you got money to buy more?: Never true Do you have trouble paying for medicines?: No Do you have trouble getting transportation to medical appointments?: No Do you have trouble paying your heating and electricity bill?: No Do you have trouble taking care of your child, family member or friend?: No Do you have trouble with day-to-day activities such as bathing, preparing meals, shopping, managing finances, etc.?: No Are you currently unemployed and looking for a job?: No Are you interested in more education?: No Please select the resources that you would like help with: None Currently or been in a relationship where the following occur: No concerns reported THRIVE Score: 0 TAMARA-7 AMB Questionnaire TAMARA-7 Date TAMARA - 7 assessed: 12/13/24 Source: Developed by Drs. Narinder Will, Latoya Garnica, Nicolas Mccann and colleagues, with an educational kg from [employer]. Review of Systems Const Details: Positives besides what was mentioned in HPI are in BOLD Constitutional: No Weight Change, No Fever, No Chills, No Night Sweats, No Fatigue, No Malaise ENT/Mouth: No Hearing Changes, No Ear Pain, No Nasal Congestion, No Sinus Pain, No Hoarseness, No sore throat, No Rhinorrhea, No Swallowing Difficulty Eyes: No Eye Pain, No Swelling, No Redness, No Foreign Body, No Discharge, No Vision Changes Cardiovascular: No Chest Pain, No SOB, No PND, No Dyspnea on Exertion, No Orthopnea, No Claudication, No Edema, No Palpitations Respiratory: No Cough, No Sputum, No Wheezing, No Smoke Exposure, No Dyspnea Gastrointestinal: No Nausea, No Vomiting, No Diarrhea, No Constipation, No Pain, No Heartburn, No Anorexia, No Dysphagia, No Hematochezia, No Melena, No Flatulence, No Jaundice Genitourinary: No Dysmenorrhea, No DUB, No Dyspareunia, No Dysuria, No Urinary Frequency, No Hematuria, No Urinary Incontinence, No Urgency, No Flank Pain, No Urinary Flow Changes, No Hesitancy Musculoskeletal: No Arthralgias, No Myalgias, No Joint Swelling, No Joint Stiffness, No Back Pain, No Neck Pain, No Injury History Skin: No Skin Lesions, No Pruritis, No Hair Changes, No Breast/Skin Changes, No Nipple Discharge Neuro: No Weakness, No Numbness, No Paresthesias, No Loss of Consciousness, No Syncope, No Dizziness, No Headache, No Coordination Changes, No Recent Falls Psych: No Anxiety/Panic, No Depression, No Insomnia, No Personality Changes, No Delusions, No Rumination, No SI/HI/AH/VH, No Social Issues, No Memory Changes, No Violence/Abuse Hx., No Eating Concerns Heme/Lymph: No Bruising, No Bleeding, No Transfusions History, No Lymphadenopathy Endocrine: No Polyuria, No Polydipsia, No Temperature Intolerance Physical exam (Primary Care) Vital Signs: Last Vital Signs Temp 97.3 F 04/21/25 16:35 Pulse 67 04/21/25 16:35 Resp 18 04/21/25 16:35 BP 100/62 04/21/25 16:35 Pulse Ox 98 04/21/25 16:35 Oxygen Delivery Method Room Air 04/21/25 16:35 BMI result Body Mass Index 31.7 Tobacco/Smoking Status: Tobacco use Status Tobacco use date assessed 04/21/25 04/21/25 16:40 Patient Tobacco Use Status Former Tobacco user 04/21/25 16:40 Tobacco use type Cigarette 04/21/25 16:40 e-Cigarette/Vaping Use Never Used 04/21/25 16:40 Thrive Assessment: Date of Thrive Assessment Date Thrive assessed 12/13/24 04/21/25 16:40 Currently or been in a relationship where the following occur: No concerns reported Const Other: Pertinent findings are in BOLD GENERAL APPEARANCE NAD, activity normal for age, well developed/ well nourished, no cyanosis, pallor, or diaphoresis. EYES lids/conjunctiva normal. EARS/NOSE/THROAT Mucous membranes moist, nares normal, lips/teeth normal uvula midline without oral pharyngeal erythema, exudate or swelling TMs normal bilaterally. No lymphangitis/lymphedema. HEAD/NECK normocephalic atraumatic, no facial trauma, neck is supple. Enlarged tonsil on right side. No tonsilar exudate appreciated. RESPIRATORY respiratory effort normal, speaks in full sentences, no tripod position, no accessory muscle use. Lungs clear to auscultation without rhonchi, wheezes, rales CARDIAC Regular rate and rhythm, no edema. ABDOMINAL Soft, ND/NT. No evidence of fluid wave. No pulsatile masses on exam, rebound tenderness, Gr sign or pain over Mcburney's point. MUSCLES/EXTREMITIES No abnormal range of motion, no swelling. SKIN Warm, pink and dry. No rashes, dermatoses, petechiae or lesions. NEUROLOGICAL Speech is clear and appropriate. Normal level of consciousness. Gait and coordination are normal. 5/5 strength in all extremities. PSYCH Normal mood and affect. Judgement/competence is appropriate Coding Level of Care Code Est Pt Level 3 (18631) Diagnoses Sore throat J02.9 Time Spent (min) 20 Assessment & Plan Assessment & Plan (1) Sore throat: Code(s): J02.9 - Acute pharyngitis, unspecified Category: Medical Plan: - Prescribed a 7-day course of amoxicillin to address possible bacterial infection. - Advised to monitor symptoms and report if no improvement occurs. - Continue with Iraida. Plan I discussed with the patient the possibility of a bacterial infection causing the neck symptoms and prescribed a 7-day course of antibiotics. We also talked about the use of Iraida for allergic rhinitis and the option to increase the dosage for better relief. Medications: New amoxicillin 875 mg PO BID 14 tabs 0RF
[2025-04-21 16:35] VITALS: BP 100/62; PULSE 67; RESP 18; TEMP 36.3; O2SAT 98; BMI 31.7
== END 2025-04-21 17:09 | disposition home or self-care (01) ==
LOC: HO.HMCH 16:24
PROVIDERS: PCP Internal Medicine; Visit Provider Internal Medicine
DX: J02.9 Acute pharyngitis, unspecified (principal)

== ENCOUNTER → 2025-04-21 16:24 | Outpatient (BNVA) | payer OTHER, SELFPAY | PROVIDERS: PCP Internal Medicine; Visit Provider Internal Medicine | DX: J02.9 Acute pharyngitis, unspecified (principal); Z72.0 Tobacco use | CPT/HCPCS: 99212 ==

== ENCOUNTER → 2025-04-24 11:18 | Outpatient (BNVA) | payer OTHER, SELFPAY | PROVIDERS: PCP Internal Medicine; Visit Provider Physician Assistant Medical | DX: M24.812 Other specific joint derangements of left shoulder, not elsewhere classified (principal); M25.812 Other specified joint disorders, left shoulder; S46.812D Strain of other muscles, fascia and tendons at shoulder and upper arm level, left arm, subsequent encounter; M75.102 Unspecified rotator cuff tear or rupture of left shoulder, not specified as traumatic; S46.212D Strain of muscle, fascia and tendon of other parts of biceps, left arm, subsequent encounter; X50.3XXD Overexertion from repetitive movements, subsequent encounter | CPT/HCPCS: 99213 ==

== ENCOUNTER 2025-05-08 11:50 | Outpatient (RCR) | payer OTHER, SELFPAY ==
--- NOTE | 2024-12-20 10:07 | MHC.PT.EP ---
[facility] [place] [facility] [place] [facility] [place] Office [address] [phone] F: [phone] F: [phone] F: [phone] F: [phone] Physical Therapy Plan of Care Date of Evaluation: 12/20/24 Date of Surgery: N/A Diagnosis: left shoulder impingement derangement (RL) Assessment: pt is a 34 y/o female presenting to physical therapy w/ referring diagnosis of left shoulder impingement derangement. Impairments include pain, decreased range of motion, decreased strength, impaired functional mobility, impaired postural awareness, and altered ambulation mechanics. pt is a good candidate for skilled PT due to age, potential remediation of impairments, typical disease/condition progression and prognosis, comorbidities, and motivation. pt would benefit from skilled PT intervention to provide a tailored strengthening and stretching exercise program, functional training, gait training, postural re-training, neuromuscular re-education, modalities as needed for pain, equipment safety demonstration. Frequency and Duration: The patient will be seen 2x/wk for 4 wks Short Term Goals: pt will be I w/ HEP to promote self-management of condition. pt will improve L shoulder flexion and abduction AROM by at least 10* each to promote ease in overhead reaching. Hand Cementer Goals: pt will improve L shoulder functional ER to at least occiput to promote ease in upper body dressing/ADLs. pt will report a statistically significant improvement in self-reported outcome measure, SPADI, to promote return to PLOF. Treatment Plan: Modalities to reduce pain, spasms and effusion. Manual therapy to restore motion and function. Therapeutic exercise to improve strength and flexibility. Neuromuscular re-education for posture and balance. Therapeutic activities to return to functional activities of daily living. Electronically signed by: Tiffanie Jackson PT, DPT Please sign and return to therapist. Thank you for your referral.
--- NOTE | 2025-05-08 13:27 | MHC.PT.DC ---
[facility] [place] Office [place] Office [place] Office [address] Massimo Diaz [address] [phone] F: [phone] F: [phone] F: [phone] F: [phone] Physical Therapy Discharge Report Diagnosis: left shoulder impingement derangement (RL) Date of Surgery: N/A Date of Evaluation: 12/20/24 Date of Discharge: 05/08/25 Treatments to Date: 22 Cancellations to Date: 12 No Shows to Date: 0 Discharge Status: Recommend MD Follow-up Discharge Summary: The patient overall has made minimal progress with physical therapy intervention. Updated SPADI completed today revealed 48/130 (last time assessed was 53/130). She was recently given restrictions from her orthopedic provider at [facility] which include no overhead reaching and no lifting greater than 5#. That has put significant limitations on our PT plan of care and her program was modified to comply with these restrictions. I cannot progress her at this time and she has failed to improve with what was trialed here. She is scheduled to have a PRP injection on 05/09/25. At this time, we have trialed light exercise as well as progressive exercise, massage, and TENS to influence her symptoms. She reports minimal overall relief with these interventions. Given her lack of progress, I am discharging her from this plan of care. Electronically signed by: Tiffanie Jackson PT, DPT Please sign and return to therapist. Thank you for your referral.
== END 2025-05-08 13:27 | disposition home or self-care (01) ==
LOC: HO.PT 11:50
PROVIDERS: PCP Internal Medicine; Visit Provider Physician Assistant Medical
DX: M25.812 Other specified joint disorders, left shoulder (principal); S46.812D Strain of other muscles, fascia and tendons at shoulder and upper arm level, left arm, subsequent encounter
CPT/HCPCS: 97014; 97110; 97140; 97161; 97164; 97530